=== PATIENT | female | born 1945 | race Caucasian/White ===

== ENCOUNTER 2022-07-01 13:44 | Emergency (ER) | payer MEDICARE, SELFPAY ==
[2022-07-01 14:12] VITALS: BP 113/65; PULSE 88; RESP 16; TEMP 36.7; O2SAT 96
--- NOTE | 2022-07-01 15:14 | ED.URI ---
HPI - URI/Sore Throat General Chief Complaint: Upper Respiratory Infection Stated Complaint: Runny Nose/Cough Source: patient and RN notes reviewed Mode of arrival: ambulatory Limitations: no limitations History of Present Illness HPI Narrative: 76-year-old male presents concern for a 2 day history of runny nose and cough. He denies aches, chills, sweats, fever, sore throat, nausea, vomiting, diarrhea. Reports his tested positive for COVID last week. MD elicited complaint: cough and sore throat Related Data Home Medications Medication Instructions Recorded Confirmed Xanax 07/01/22 empagliflozin 07/01/22 gabapentin 07/01/22 metformin 07/01/22 pioglitazone 07/01/22 pravastatin 07/01/22 sildenafil 100 mg tablet mg 07/01/22 trazodone 50 mg tablet mg 07/01/22 Allergies Allergy/AdvReac Type Severity Reaction Status Date / Time No Known Allergies Allergy Verified 07/01/22 14:09 Review of Systems Review of Systems: CONSTITUTIONAL: Denies malaise, chills, sweats, or fever. EYES: Denies visual changes, redness, or discharge. ENT: Reports rhinorrhea. Denies congestion, sinus pain, otalgia and sore throat. CARDIOVASCULAR: Denies chest pain, palpitations, or edema. RESPIRATORY: Reports cough. Denies dyspnea. GASTROINTESTINAL: Denies abdominal pain, nausea, vomiting, diarrhea SKIN: Denies rash or itching. MUSCULOSKELETAL: Denies myalgia. NEUROLOGIC: Denies headache. All systems reviewed & are unremarkable except as noted in HPI and below PMFSH Comments At time of signature, agree with nursing past medical, surgical, social and family history. There is no relevant family history pertinent to the presenting complaint Exam Narrative: GENERAL: Well-appearing, well-nourished, and in no acute distress. HEAD: Normocephalic EYES: PERRLA, conjunctivae clear ENT: Nares clear, clear discharge. Mucous membranes moist. TM pearly zamorano with dull light reflex bilaterally; no tragal tenderness. Oropharynx not erythematous without lesions. Tonsils not enlarged and without exudate, no drooling, no hoarseness, no trismus, uvula midline. NECK: Supple. No lymphadenopathy CHEST: Clear to auscultation, breath sounds equal. No wheezing, rhonchi, rales, or stridor. No respiratory distress, speaks in full sentences. HEART: Regular rate and rhythm. No murmur heard. SKIN: Warm, dry, no rash. NEURO: Alert and oriented x3. PSYCH: Normal mood and affect Course Course Emergency Course: Patient is aware of diagnosis, understands and agrees to treatment plan. Anticipatory guidance given. Patient agrees to follow-up as directed and is aware of reasons to seek care at the emergency department. Portions of this record may have been created with voice recognition software Level of Care: Express Care Visit Vital Signs Vital signs: Vital Signs Temperature 98.1 F 07/01/22 14:12 Pulse Rate 88 07/01/22 14:12 Respiratory Rate 16 07/01/22 14:12 Blood Pressure 113/65 07/01/22 14:12 Pulse Oximetry 96 07/01/22 14:12 Oxygen Delivery Room Air 07/01/22 14:12 Temperature 98.1 F 07/01/22 14:12 Pulse Rate 88 07/01/22 14:12 Respiratory Rate 16 07/01/22 14:12 Blood Pressure 113/65 07/01/22 14:12 Pulse Oximetry 96 07/01/22 14:12 Oxygen Delivery Room Air 07/01/22 14:12 Reviewed. MDM - URI/Sore Throat MDM Narrative Medical decision making narrative: Differential diagnosis considered: Alexander virus, strep pharyngitis, allergic rhinitis, upper respiratory tract infection, sinusitis, rhinosinusitis, nasopharyngitis. viral pharyngitis, otitis media, otitis externa, pneumonia, bronchitis, viral cough syndrome, viral syndrome, and influenza. Exam findings show no acute concerns or changes; patient is non-toxic appearing and is in no distress. Patient is appropriate for outpatient treatment and follow-up. Lab Data Attestation: I reviewed the patient's lab results. Critical Care Time Critical Care Time Crit
== END 2022-07-01 15:34 | disposition home or self-care (01) ==
PROVIDERS: Emergency Provider Nurse Practitioner; PCP Internal Medicine
DX: U07.1 COVID-19 (principal)
CPT/HCPCS: 87426; 99213; C9803; G0463

== ENCOUNTER 2023-04-21 12:07 | Emergency (ER) | payer MEDICARE, SELFPAY ==
--- NOTE | ~2023-04-21 | XR_ITS ---
EXAMINATION: XR chest 2V DATE: 04/21/2023 12:46 INDICATION: Cough and chest congestion. TECHNIQUE: Frontal and lateral views of the chest were obtained on 3 radiographs. COMPARISON: None. FINDINGS: There is no pneumonia, pleural effusion, or pneumothorax. The heart size is normal. IMPRESSION: 1. No acute cardiopulmonary disease. Reviewed, dictated and finalized at location A.
[2023-04-21 12:14] VITALS: BP 117/61; PULSE 105; RESP 16; TEMP 36.7; O2SAT 94
[2023-04-21 12:20] VITALS: BP 117/61; PULSE 105; RESP 16; TEMP 36.7; O2SAT 94
--- NOTE | 2023-04-21 12:27 | ED.GENADULT ---
HPI - General Adult General Chief complaint: Upper Respiratory Infection Stated complaint: Chest Congestion/Runny Nose Source: patient Mode of arrival: ambulatory Limitations: no limitations History of Present Illness HPI narrative: Patient presents for evaluation of cough for the last week. He also has some sinus congestion. Denies any fever, chills, nausea, vomiting, sore throat, otalgia, diarrhea, shortness of breath. He smokes 1/2 ppd. Denies being diagnosed with asthma or COPD in the past. He is taking some maki-seltzer and allergy medications for his symptoms. No recent sick contacts to his knowledge. Related Data Home Medications Medication Instructions Recorded Confirmed Xanax 07/01/22 gabapentin 07/01/22 metformin 07/01/22 pioglitazone 07/01/22 pravastatin 07/01/22 sildenafil 100 mg tablet mg 07/01/22 trazodone 50 mg tablet mg 07/01/22 Allergies Allergy/AdvReac Type Severity Reaction Status Date / Time No Known Allergies Allergy Verified 07/01/22 14:09 Review of Systems Review of Systems: CONSTITUTIONAL: Reports fatigue. Denies fever, chills, or sweats. EYES: Denies visual changes, redness, or discharge. ENT: Reports sinus congestion. Denies rhinorrhea, sore throat, or otalgia. CARDIOVASCULAR: Denies chest pain, palpitations, or edema. RESPIRATORY: Reports cough. Denies dyspnea. GASTROINTESTINAL: Denies abdominal pain, nausea, vomiting, or diarrhea. GENITOURINARY: Denies dysuria or hematuria. SKIN: Denies rash or itching. MUSCULOSKELETAL: Denies back pain, joint pain, or myalgia. NEUROLOGIC: Denies headache, numbness, dizziness, or weakness. PSYCHIATRIC: Denies anxiety or depression. PENDING SALE TO [facility] Past Medical History Medical History Diabetes Hyperlipidemia Tobacco use Surgical History Surgical History History of cholecystectomy Family History Family History Mother Family history non-contributory Social History Social History Smoking packs per day: 0.5 Smoking cigarettes per day: 10.0 Smoking status: Current every day smoker Substance use: never Living arrangements: with family Gender identity (if verbalized by the patient): Male Sexual Orientation (if Verbalized by the Patient): Straight or Heterosexual Spiritual care concerns: No Exam Narrative: GENERAL: Well-appearing, well-nourished, and in no acute distress. HEAD: Normocephalic, atraumatic. EYES: PERRLA and EOMI. ENT: Nares clear, no rhinorrhea or epistaxis. Mucous membranes moist. Oropharynx without tonsillar hypertrophy exudate or other lesions. Bilateral TMs pearly zamorano nonbulging NECK: Supple. No adenopathy or masses. No carotid bruits or JVD CHEST: Wheezing noted in bilateral lung carter posteriorly HEART: Regular rate and rhythm. No murmur heard. Normal peripheral pulses. ABDOMEN: Soft, nontender, nondistended, normal active bowel sounds. EXTREMITIES: Normal range of motion. No edema. SKIN: Warm, dry, no rash. NEURO: No focal deficits. Alert and oriented x3. PSYCH: Normal mood and affect. Course Course Emergency Course: This is a 77-year-old male who presented for evaluation of respiratory symptoms. COVID and flu were negative. Chest x-ray negative. Given Solu-Medrol and DuoNeb treatment with considerable improvement in his symptoms or after. Advised on smoking cessation. Will discharge with prednisone, albuterol, Mucinex DM. Monitor blood sugar closely while on steroids. Follow-up with primary provider. Go to the ER for worsening symptoms. Pt in agreement with plan of care. Level of Care: Express Care Visit Vital Signs Vital signs: Vital Signs Temperature 36.7 C 04/21/23 12:14 Pulse Rate 105 H 04/21/23 12:14 Respiratory Rate 16 04/21/23 12:14 Blood Pressure 117/61 04/21/23 12
[2023-04-21] MEDS: IPRATROPIUM BR 0.02% INH SOLN 0.5 MG/2.5 ML VIAL INHALATION (12:34)
[2023-04-21] MEDS: ALBUTEROL SULFATE NEB 2.5 MG/3 ML INH INHALATION (12:34)
[2023-04-21] MEDS: methylPREDNISolone SOD SUCC 125 MG VIAL IM (12:35)
== END 2023-04-21 13:30 | disposition home or self-care (01) ==
PROVIDERS: Emergency Provider Nurse Practitioner; PCP Internal Medicine
DX: B34.9 Viral infection, unspecified (principal); Z20.822 Contact with and (suspected) exposure to COVID-19; F17.210 Nicotine dependence, cigarettes, uncomplicated; E11.9 Type 2 diabetes mellitus without complications; E78.5 Hyperlipidemia, unspecified
CPT/HCPCS: 71046; 87426; 87804; 94640; 96372; 99213; C9803; G0463; J2930

== ENCOUNTER 2024-08-18 12:06 | Emergency (ER) | payer MEDICARE, SELFPAY ==
--- NOTE | ~2024-08-18 | XR_ITS ---
EXAMINATION: XR chest 2V 08/18/2024 12:37 INDICATION: Cough and shortness of PROCEDURE: 2 view chest COMPARISON: 04/21/2023 FINDINGS: The lungs are clear. The cardiomediastinal silhouette is within normal limits. There are no pleural effusions. There is no pneumothorax suspected. IMPRESSION: 1: NO ACUTE CARDIOPULMONARY DISEASE. Reviewed, dictated and finalized at location B. [facility] [employer]
--- OUTSIDE RECORDS SUMMARY | 2024-08-18 12:09 | XMS_ITS | Patient Health Summary ---
Author Organization [facility] Address [address] [place] [address] Care Team Providers Care Medical Office Secretary Name Role Phone David Veloz MD Primary Care Provider [phone] Note from [facility],non-owned Affiliates and Associated Physician Practices is amultiple site organization consisting of ambulatory clinics and hospital sitesin [place], [place], [place] and [place]. This disclosure is being madepursuant to the Care Everywhere program and may not contain all information available regarding this patient. Last updated 18.[facility] Allergies No known active allergies Immunizations * INFLUENZA VACCINE, HIGH-DOSE, QUADR. (FLUZONE HIGH-DOSE QUADRIVALENT; 65Y+), 0.7 ML (HD-IIV4)(Given 04/16/2018) Social History Tobacco Use Types Packs/Day Years Used Date Smoking Tobacco: Never Assessed Sex and Gender Information Value Date Recorded Sex Assigned at Not on file Gender Identity Not on file Sexual Orientation Not on file Procedures * DERMATOPATHOLOGY(Performed 08/28/2023) Results * DERMATOPATHOLOGY (08/28/2023 3:33 AM LOG SCALER) Case Report Dermatopathology Report Case: [id number] Authorizing Provider: Michael Byrd Jr., MD Collected: 08/28/2023 03:33 AM Ordering Location: [facility] DermPath Lab Received: 09/01/2023 12:53 PM Pathologist: Lavinia Rudolph MD Specimens: A) - Skin, left distal posterior upper arm B) - Skin, left clavicular neck 4 3:01 PM LOG SCALER DERMATOPATHOLOGY LABORATORY Final Diagnosis Specimen A. SKIN, left distal posterior upper arm: BENIGN VERRUCOUS KERATOSIS (L82.1) HEALING SKIN CHANGES (L90.5) Specimen B. SKIN, left clavicular neck: SEBORRHEIC KERATOSIS, IRRITATED AND INFLAMED (L82.0) 4 3:[address] [facility] DERMATOPATHOLOGY LABORATORY Clinical History A-B: Inflamed Seborrheic Keratosis vs Squamous Cell Carcinoma vs Verruca Vulgaris 4 3:[address] [facility] DERMATOPATHOLOGY LABORATORY Gross Description Specimen A: Received is one formalin filled container labeled with the patient's name and designated left distal posterior upper arm. The specimen consists of a shave biopsy measuring 8x6x2 mm. Jar 0. Specimen B: Received is one formalin filled container labeled with the patient's name and designated left clavicular neck. The specimen consists of a shave biopsy measuring 12x9x3 mm. Jar 0. 4 3:[address] [facility] DERMATOPATHOLOGY LABORATORY Microscopic Description Specimen A. SKIN, left distal posterior upper arm: Sections show hyperkeratosis, papillomatosis, hypergranulosis, and acanthosis. These histological findings can be seen in a verruca vulgaris or a seborrheic keratosis. There is adjacent epidermal hyperplasia beneath which there are vascular proliferation, fibroblasts, and an edematous stroma. Specimen B. SKIN, left clavicular neck: There is hyperkeratosis, parakeratosis, papillomatosis, and acanthosis of the epidermis. There is a lymphohistiocytic infiltrate within the papillary dermis that is focally lichenoid. 4 3:[address] [facility] DERMATOPATHOLOGY LABORATORY Disclaimer An external and internal positive and negative controls are appropriate for the histochemical, immunohistochemical and immunofluorescence stain(s) in this case (if any), except where stated explicitly. The performance characteristics of the stain(s) cited in this report were developed and its performance characteristic determined by the Dermatopathology Laboratory at [facility], directed by Dr. Radha Falcon. These tests need not be, and therefore are not, approved by the [place] Food and Drug Administration. The tests are used for clinical purposes. Billing Codes Specimen Charges Stain Charges 85306 83813 1 1 4 3:[address] [facility] DERMATOPATHOLOGY LABORATORY Embedded Images 4 3:[address] [facility] DERMATOPATHOLOGY LABORATORY Pathology/Cytology TISSUE SPECIMEN FROM SKIN / Unknown 08/28/2023 3:33 AM LOG SCALER 09/01/2023 12:53 PM LOG SCALER Miscellaneous samples (specimen) TISSUE SPECIMEN FROM SKIN / Unknown 08/28/2023 3:33 AM LOG SCALER 09/01/2023 12:53 PM LOG SCALER Michael Byrd Jr., MD LAB - PATHOLOGY /CYTOLOGY ORDERABLES DERMATOPATHOLOGY LABORATORY [facility] - Department of Dermatology [facility] [address] [place] [address], [address] [phone] Care Teams Medical Office Secretary Relationship Specialty Start Date End Date David Veloz MD PCP - General Internal Medicine 04/16/18
--- OUTSIDE RECORDS SUMMARY | 2024-08-18 12:09 | XMS_ITS | Encounter Summary ---
Author Organization [facility] Address [address] [place] [address] Care Team Providers Care Inspector Elevators Name Role Phone David Veloz MD Primary Care Provider [phone] Encounter Details Date Type Department Care Team (Late st Contact Info) Description 09/01/2023 Lab Requisition [facility] - DermPath Lab [address] [place] [id number] Michael Byrd Jr., MD [address] [place] [address] Social History Tobacco Use Types Packs/Day Years Used Date Smoking Tobacco: Never Assessed Sex and Gender Information Value Date Recorded Sex Assigned at Not on file Gender Identity Not on file Sexual Orientation Not on file documented as of this encounter Plan of Treatment Not on file documented as of this encounter Procedures Procedure Name Priority Date/Time Associated Diagnosis Comments DERMATOPATHOLOGY Routine 08/28/2023 3:33 AM HEALTH INFORMATION ADMINISTRATOR documented in this encounter Results * DERMATOPATHOLOGY (08/28/2023 3:33 AM HEALTH INFORMATION ADMINISTRATOR) Case Report Dermatopathology Report Case: [id number] Authorizing Provider: Michael Byrd Jr., MD Collected: 08/28/2023 03:33 AM Ordering Location: [facility] DermPath Lab Received: 09/01/2023 12:53 PM Pathologist: Lavinia Rudolph MD Specimens: A) - Skin, left distal posterior upper arm B) - Skin, left clavicular neck 3:01 PM HEALTH INFORMATION ADMINISTRATOR DERMATOPATHOLOGY LABORATORY Final Diagnosis Specimen A. SKIN, left distal posterior upper arm: BENIGN VERRUCOUS KERATOSIS (L82.1) HEALING SKIN CHANGES (L90.5) Specimen B. SKIN, left clavicular neck: SEBORRHEIC KERATOSIS, IRRITATED AND INFLAMED (L82.0) 4 3:01 PM [facility] DERMATOPATHOLOGY LABORATORY Clinical History A-B: Inflamed Seborrheic Keratosis vs Squamous Cell Carcinoma vs Verruca Vulgaris 4 3:01 PM [facility] DERMATOPATHOLOGY LABORATORY Gross Description Specimen A: Received [...] 12x9x3 mm. Jar 0. 4 3:01 PM [facility] DERMATOPATHOLOGY LABORATORY Microscopic Description Specimen A. SKIN, [...] that is focally lichenoid. 4 3:01 PM [facility] DERMATOPATHOLOGY LABORATORY Disclaimer An external and internal positive and negative controls are appropriate for the histochemical, immunohistochemical and immunofluorescence stain(s) in this case (if any), except where stated explicitly. The performance characteristics of the stain(s) cited in this report were developed and its performance characteristic determined by the Dermatopathology Laboratory at [facility], directed by Dr. Radha Falcon. These tests need not be, and therefore are not, approved by the [place] Food and Drug Administration. The tests are used for clinical purposes. Billing Codes Specimen Charges Stain Charges 26531 96110 1 1 4 3:01 PM [facility] DERMATOPATHOLOGY LABORATORY Embedded Images 4 3:01 PM [facility] DERMATOPATHOLOGY LABORATORY Pathology/Cytology TISSUE SPECIMEN FROM SKIN / Unknown 08/28/2023 3:33 AM HEALTH INFORMATION ADMINISTRATOR 09/01/2023 12:53 PM HEALTH INFORMATION ADMINISTRATOR Miscellaneous samples (specimen) TISSUE SPECIMEN FROM SKIN / Unknown 08/28/2023 3:33 AM HEALTH INFORMATION ADMINISTRATOR 09/01/2023 12:53 PM HEALTH INFORMATION ADMINISTRATOR Michael Byrd Jr., MD LAB - PATHOLOGY /CYTOLOGY ORDERABLES DERMATOPATHOLOGY LABORATORY [facility] - Department of Dermatology [facility] Specialized Medicine [address] [place] [address], [address] [phone] documented in this encounter Visit Diagnoses Not on filedocumented in this encounter Care Teams Inspector Elevators Relationship Specialty Start Date End Date David Veloz MD PCP - General Internal Medicine 04/16/18 documented as of this encounter
--- OUTSIDE RECORDS SUMMARY | 2024-08-18 12:09 | XMS_ITS | Referral Summary ---
Author Organization [facility] Address [address] [place] [address] Care Team Providers Care Order Dispatcher Name Role Phone David Veloz MD Primary Care Provider [phone] Source Comments [facility],non-owned Affiliates and Associated Physician Practices is amultiple site organization consisting of ambulatory clinics and hospital sitesin [place], [place], [place] and [place]. This disclosure is being madepursuant to the Care Everywhere program and may not contain all information available regarding this patient. Last updated 18.[facility] [employer] Allergies No known active allergies Immunizations Name Administration Dates Next Due INFLUENZA VACCINE, HIGH-DOSE , QUADR. (FLUZONE HIGH-DOSE QUADRIVALENT; 65Y+), 0.7 ML (HD-IIV4) 04/16/2018 Social History Tobacco Use Types Packs/Day Years Used Date Smoking Tobacco: Never Assessed Sex and Gender Information Value Date Recorded Sex Assigned at Not on file Gender Identity Not on file Sexual Orientation Not on file Plan of Treatment Not on file Care Teams Order Dispatcher Relationship Specialty Start Date End Date David Veloz MD PCP - General Internal Medicine 04/16/18
--- OUTSIDE RECORDS SUMMARY | 2024-08-18 12:09 | XMS_ITS | Encounter Summary ---
Author Organization [facility] Address [address] [place] [address] Phone Care Team Providers Care Golf Superintendent Name Role Phone Dante Ratliff MD Primary Care Provider [phone] Fidel Figueredo MD Unavailable [phone] Hair Ocasio MD Primary Care Provider Evaristo Gomez MD Unavailable [phone] Encounter Details Date Type Department Care Team (Late st Contact Info) Description 10/15/2017 Orders Only [facility] ProviderRandall MD [address] [place] [address] Social History Tobacco Use Types Packs/Day Years Used Date Smoking Tobacco: Some Days Cigarettes 1 56 Smokeless Tobacco: Current Alcohol Use Standard Drinks/Week Comments No 0 (1 standard drink = 0.6 oz pur e alcohol) Sex and Gender Information Value Date Recorded Sex Assigned at Not on file Legal Sex Male 1:20 PM TIMBER ESTIMATOR Gender Identity Not on file Sexual Orientation Not on file documented as of this encounter Plan of Treatment Not on file documented as of this encounter Procedures Procedure Name Priority Date/Time Associated Diagnosis Comments DISCHARGE LABORATORY CUMULATIVE REPORT 10/15/2017 12:00 AM CDT documented in this encounter Results * DISCHARGE LABORATORY CUMULATIVE REPORT (10/15/2017 12:00 AM CDT) Narrative 10/15/2017 12:00 AM CDT Ordered by an unspecified provider. us Historical Provider LAB BLOOD ORDERABLES Taryn l Result documented in this encounter Visit Diagnoses Not on filedocumented in this encounter Care Teams Golf Superintendent Relationship Specialty Start Date End Date Dante Ratliff MD PCP - General Internal Medicine 06/08/17 10/15/23 Hair Ocasio MD [address] SHRUTI England [facility] [address] [place] [address] PCP - General Family Medicine 10/16/23 Fidel Figueredo MD Referring Physician General Surgery 11/11/18 Evaristo Gomez MD [address] SHRUTI Lozada [facility] [address] [place] [address] Surgeon Orthopedic Surgery 12/09/23 documented as of this encounter
--- OUTSIDE RECORDS SUMMARY | 2024-08-18 12:09 | XMS_ITS | Encounter Summary ---
Author Organization [facility] Address [address] [place] [address] Care Team Providers Care Database Administration Project Manager Name Role Phone David Veloz MD Primary Care Provider + Dante Ratliff MD Primary Care Provider [phone] Fidel Figueredo MD Unavailable [phone] Hair Ocasio MD Primary Care Provider Evaristo Gomez MD Unavailable [phone] Encounter Details Date Type Department Care Team (Late st Contact Info) Description 07/17/2016 Orders Only [facility] Internal Medicine Provider, MD Randall [address] [place] [address] Social History Tobacco Use Types Packs/Day Years Used Date Smoking Tobacco: Some Days Alcohol Use Standard Drinks/Week Comments No 0 (1 standard drink = 0.6 oz pur e alcohol) Sex and Gender Information Value Date Recorded Sex Assigned at Not on file Legal Sex Male 1:20 PM GOVERNMENT PROPERTY INSPECTOR Gender Identity Not on file Sexual Orientation Not on file documented as of this encounter Plan of Treatment Not on file documented as of this encounter Procedures Procedure Name Priority Date/Time Associated Diagnosis Comments CARDIOLOGY REPORT 07/17/2016 documented in this encounter Results * CARDIOLOGY REPORT (07/17/2016) Anatomical Region Laterality Modality Other Narrative 07/17/2016 Ordered by an unspecified provider. Historical Provider CV CARDIAC SERVICES PROCE DURES Final Result documented in this encounter Visit Diagnoses Not on filedocumented in this encounter Care Teams Database Administration Project Manager Relationship Specialty Start Date End Date David Veloz MD [address] [place] [address] PCP - General 10/18/07 06/07/17 Dante Ratliff MD [address] [place] [address] PCP - General Internal Medicine 06/08/17 10/15/23 Hair Ocasio MD [address] [place] [address] DR SHRUTI [place] [facility] [address] [place] [address] PCP - General Family Medicine 10/16/23 Fidel Figueredo MD [address] [place] [address] [place] [address] Referring Physician General Surgery 11/11/18 Evaristo Gomez MD [address] [place] [address] DR BAHENA B [facility] [address] [place] [address] Surgeon Orthopedic Surgery 12/09/23 documented as of this encounter
--- OUTSIDE RECORDS SUMMARY | 2024-08-18 12:09 | XMS_ITS | Clinical Summary ---
Author Organization [facility] Address [address] [place] [address] Care Team Providers Care Cobol Developer Name Role Phone David Veloz MD Primary Care Provider [phone] Source Comments [facility],non-owned Affiliates and Associated Physician Practices is amultiple site organization consisting of ambulatory clinics and hospital sitesin [place], [place], [place] and [place]. This disclosure is being madepursuant to the Care Everywhere program and may not contain all information available regarding this patient. Last updated 18.[facility] Allergies No known active allergies Immunizations Name Administration Dates Next Due INFLUENZA VACCINE, HIGH-DOSE , QUADR. (FLUZONE HIGH-DOSE QUADRIVALENT; 65Y+), 0.7 ML ([id number]) 04/16/2018 Social History Tobacco Use Types Packs/Day Years Used Date Smoking Tobacco: Never Assessed Sex and Gender Information Value Date Recorded Sex Assigned at Not on file Gender Identity Not on file Sexual Orientation Not on file Plan of Treatment Health Maintenance Due Date Last Done Comments MEDICARE AWV 12 MONTHS 1945 HEPATITIS C SCREENING 12/09/1963 DTAP/TDAP/TD VACCINES (1 - Tdap) 1964 PNEUMOCOCCAL VACCINE 50+ (1 of 1 - PCV) 12/14/1995 ZOSTER VACCINE (1 of 2) 12/14/1995 Respiratory Syncytial Virus (RSV) Vaccine Pt: or over 60 yrs (1 - 1-dose 75+ series) 2020 COVID-19 VACCINE (1 - 2023-25 season) 2024 INFLUENZA VACCINE (#1) 2024 8, 04/14/2017, 05/05/2016, Additional history exists DEPRESSION SCREENING 07/13/2024 HEPATITIS B VACCINE Aged Out No longe r eligible based on patient's age to complete this topic HIB VACCINE Aged Out No longer eligi ble based on patient's age to complete this topic HPV VACCINE Aged Out No longer eligi ble based on patient's age to complete this topic MENINGOCOCCAL (Group B) VACCINE Aged Out No longer eligible based on patient's age to complete this topic MENINGOCOCCAL VACCINE Aged Out No ruel cherie eligible based on patient's age to complete this topic Care Teams Cobol Developer Relationship Specialty Start Date End Date David Veloz MD PCP - General Internal Medicine 04/16/18
--- OUTSIDE RECORDS SUMMARY | 2024-08-18 12:10 | XMS_ITS | Clinical Summary ---
Author Organization [facility] Office Building A Address [address] [place] [address] Care Team Providers Care Metal Mockup Maker Name Role Phone Fidel Figueredo MD Unavailable [phone] Hair Ocasio MD Primary Care Provider Evaristo Gomez MD Unavailable [phone] Allergies Active Allergy Reactions Criticality Noted Date Comments Ciprofloxacin Rash Medium Reaction: Rash, , Reaction: Rash, Medications pravastatin (PRAVACHOL) 40 mg tablet take 1 tablet by ORAL route every day 0 0 7 Active fluticasone (FLONASE) 50 mcg/actuation nasal spray Administer 2 sprays into each nostril daily. 16 g 8 Active cholecalciferol (VITAMIN D-3) 2000 unit capsule 1 capsule (2,000 Units total) Active gabapentin (NEURONTIN) 300 mg capsule Take 3 capsules (900 mg total) by mouth 3 (three) times a day Active alogliptin 25 mg tablet Take 1 tablet by mouth daily Active albuterol HFA (PROVENTIL HFA,VENTOLIN HFA,PROAIR HFA) 90 mcg/actuation inhaler Inhale 2 puffs every 6 (six) hours as needed for wheezing Active MULTIVITAMIN ORAL Take by mouth Active DULoxetine DR (CYMBALTA) 60 mg capsule Take 1 capsule (60 mg total) by mouth daily Active empagliflozin-m etformin 12.5-1,000 mg tablet, IR & ER, biphasic 24hr Take two tablets every morning 3 Active cetirizine (ZyrTEC) 10 mg tablet 1 tablet (10 mg total) 3 Active pioglitazone (ACTOS) 30 mg tabletIndicatio ns:type 2 diabetes mellitus Take 1 tablet (30 mg total) by mouth daily Active sildenafiL (VIAGRA) 100 mg tablet 1 tablet (100 mg total) Active traZODone (DESYREL) 50 mg tablet 1 tablet (50 mg total) Active ciclopirox (LOPROX) 0.77 % creamIndication s:Tinea pedis of left foot Apply topically 2 (two) times a day Gently massage into affected areas and surrounding skin 15 g 4 12/09/19 25 Active doxycycline (VIBRAMYCIN) 100 mg capsuleIndicati ons:Skin cyst Take 1 tablet/capsule (100 mg total) by mouth 2 (two) times a day for 10 days 20 tablet/capsu le 5 08/12/19 25 Active Problems Problem Noted Date Diagnosed Date Skin cyst 08/02/2024 Assessment & Plan (08/02/2024 2:24 PM AUTOMOTIVE SALESPERSON): - new diagnosis - not consistent with lymph node - likely sebaceous cyst, non-tender, mild irritation noted - start Doxycycline 100 mg bID BID - discussed if not improved it may need to be excised if it causes him discomfort S/P total knee arthroplasty, left 10/22/2023 Assessment & Plan (12/09/2023 3:06 PM CDT): -chronic, worsening -patient reports longstanding history of arthritis in left knee -patient currently follows with Dr. Gomez of ortho -plans for left knee replacement scheduled for 02/02/2024 Assessment & Plan (10/30/2023 12:28 PM CDT): -chronic, worsening -patient reports longstanding history of arthritis in left knee -patient currently follows with Dr. Gomez of ortho -plans for left knee replacement on 11/17/2023 -preop evaluation completed -continue current treatment plan History of colonic polyps 09/04/2023 Assessment & Plan (05/31/2024 4:05 PM AUTOMOTIVE SALESPERSON): - has personal history of colon polyps - most recent colonoscopy as shown below Colonoscopy 04/2024 Impression: - Three 10 to 12 mm polyps in the descending colon and in the ascending colon, removed with a cold snare. Resected and retrieved. - Diverticulosis in the sigmoid colon and at the hepatic flexure. - Internal hemorrhoids. Recommendation: - Await pathology results. - Repeat colonoscopy is not recommended for screening purposes. - Patient medication history reviewed. Patient is appropriately not taking any medications. - Continue present medications. Assessment & Plan (12/11/2023 11:22 PM CDT): - has [facility] for [facility] 2024 [facility] - has personal history of colon polyps PTSD (post-traumatic stress disorder) 11/25/2021 Overview (11/25/2021): [facility]aged by [facility] Assessment & Plan (05/31/2024 4:03 PM AUTOMOTIVE SALESPERSON): - chronic condition, stable status - follows and managed by [facility] - of PTSD, anxiety, depression - currently on Trazodone 50 mg nightly for sleep, Duloxetine DR 60 mg daily - continue current management Assessment & Plan (12/09/2023 3:05 PM CDT): - chronic condition, stable status - follows and managed by [facility] at the [facility] - of PTSD, anxiety, depression - currently on Trazodone 50 mg nightly for sleep, Duloxetine DR 60 mg daily - continue current management Assessment & Plan (05/28/2022 10:09 AM AUTOMOTIVE SALESPERSON): Stable on current medication regimen should follow-up with psychiatrist as they direct. Assessment & Plan (11/25/2021 8:50 AM CDT): Stable on duloxetine and should follow-up with his [facility] psychiatrist. Callus of foot 11/13/2020 Assessment & Plan (11/13/2020 9:59 AM CDT): Follow-up with his window glazier as they direct. Erectile dysfunction 11/13/2020 Assessment & Plan (11/25/2022 12:02 PM CDT): Recommended Urology eval but declined. Failed viagra and testosterone replacement. Abnormal ankle brachial index (BRAULIO) 11/08/2018 Assessment & Plan (03/12/2019 9:04 AM CDT): Patient has increased risk for peripheral arterial disease due to his age, hypertension, diabetes, smoking history. He had an abnormal screening test and therefore a formal evaluation with ankle brachial indexes was ordered at [facility] thus it was medically necessary. Assessment & Plan (11/08/2018 8:30 PM CDT): Will confirm abnormal test with BRAULIO at [facility]. Psychophysiological insomnia 03/03/2018 Assessment & Plan (05/31/2024 4:03 PM AUTOMOTIVE SALESPERSON): - chronic condition, stable status - has known anxiety and depression - managed by his psychiatrist, currently on trazodone 50 mg on a nightly basis through the [facility] - continue current management Assessment & Plan (12/11/2023 11:18 PM CDT): - chronic condition, stable status - has known anxiety and depression - managed by his psychiatrist, currently on trazodone 50 mg on a nightly basis through the [facility] - continue current management Assessment & Plan (11/25/2022 4:30 PM CDT): Advised him to avoid Xanax for sleep. Recommended trying trazodone or Belsomra or Ambien. Follow-up with his psychiatrist for management. Assessment & Plan (11/25/2021 8:50 AM CDT): Follow-up with his [facility]. Assessment & Plan (07/09/2021 8:21 PM AUTOMOTIVE SALESPERSON): Trial of trazodone 50 mg at bedtime increase as needed. Call back if side effects develop. Diabetic peripheral neuropathy (CMS/HCC) 018 Assessment & Plan (12/11/2023 11:21 PM CDT): - chronic condition, controlled - currently on gabapentin 100 mg 3 times daily [facility] - aware of importance of good glycemic control for type 2 diabetes, also has hx of chemotherapy which may have contributed to neuropathy - continue current management No results found for: VITB12 No results found for: FOLATE Assessment & Plan (05/30/2022 2:26 PM AUTOMOTIVE SALESPERSON): Patient plans on Tonny Chi for balance training at the [facility]. Physical therapy offered for balance training as well but declined. Call back if changes his mind Assessment & Plan (05/28/2022 10:11 AM AUTOMOTIVE SALESPERSON): Stable on gabapentin and duloxetine. Assessment & Plan (11/25/2021 8:50 AM CDT): Well controlled on gabapentin and duloxetine. Assessment & Plan (07/09/2021 8:20 PM AUTOMOTIVE SALESPERSON): Stable on gabapentin. Assessment & Plan (11/13/2020 9:58 AM CDT): Better controlled on increased dose of gabapentin. Assessment & Plan (06/13/2020 2:44 PM AUTOMOTIVE SALESPERSON): Increase gabapentin and call back if no improvement. Side effects discussed and call back if any develop. Assessment & Plan (11/11/2019 2:33 PM CDT): Well controlled on gabapentin. Assessment & Plan (05/13/2019 9:44 AM CDT): Well controlled gabapentin. Assessment & Plan (11/08/2018 8:29 PM CDT): Stable on gabapentin. Assessment & Plan (03/08/2018 12:01 AM CDT): Well controlled on gabapentin. Assessment & Plan (10/29/2017 9:31 AM CDT): Continue gabapentin. Cannot walk further than 200 ft without having to stop and rest and thus disability parking form completed. Assessment & Plan (10/28/2017 2:01 PM CDT): Continue gabapentin. 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 Discharged from heme/onc 2015 with recs for yearly cbc. Assessment & Plan (06/15/2023 12:49 AM AUTOMOTIVE SALESPERSON): Asymptomatic and CBC remains normal. Refer back to Heme-Onc if needed. Assessment & Plan (05/28/2022 10:10 AM AUTOMOTIVE SALESPERSON): Asymptomatic and CBC remains normal. CBC yearly and refer back to Heme-Onc if needed. Assessment & Plan (05/13/2019 9:44 AM CDT): Patient remains asymptomatic will check CBCs yearly. Refer back to oncology for any signs of recurrence. Assessment & Plan (11/10/2018 3:49 AM CDT): In remission, stable. Continue monitoring Assessment & Plan (11/08/2018 8:32 PM CDT): Patient concerned that his increased bloating and occasional abdominal discomfort is related to recurrence of his lymphoma. Repeat CT scan abdomen pelvis and call back for results. Assessment & Plan (03/08/2018 12:01 AM CDT): Continue yearly CBC and refer back to Oncology if develops symptoms of current disease. Assessment & Plan (10/29/2017 9:31 AM CDT): Follow-up with his oncologist as they direct. Assessment & Plan (10/28/2017 2:01 PM CDT): Follow-up with his oncologist as he directs. Atopic rhinitis 08/28/2014 Overview (10/16/2016): Chronic allergic rhinitis Assessment & Plan (11/13/2020 9:58 AM CDT): Better controlled on fluticasone and Zyrtec Assessment & Plan (06/13/2020 2:43 PM AUTOMOTIVE SALESPERSON): Add Fluticasone to his Zyrtec. Assessment & Plan (03/08/2018 12:00 AM CDT): Well controlled on Zyrtec fluticasone and azelastine. Assessment & Plan (10/29/2017 9:29 AM CDT): Add azelastine to his Zyrtec and Flonase and needs take all his medications each and every day. Assessment & Plan (10/28/2017 2:02 PM CDT): Flonase and Flonase and Zyrtec on a regular basis and will try a course of Ceftin for possible sinusitis. Type 2 diabetes mellitus with hyperlipidemia Assessment & Plan (05/31/2024 4:24 PM AUTOMOTIVE SALESPERSON): - chronic, worse/not at goal - [facility] - currently on Alogliptin 25 mg daily, Empagliflozin-metformin 12.5-1000 mg daily - has neuropathy and is on Gabapentin 900 mg TID which has helped him - currently on Pravastatin 40 mg daily - most recent labs as shown below\ - has had Left TKA and has had more inactivity, plans to be more active and believes his A1c will improved - continue current management, recheck lab for next visit, order placed Lab Results Component Value Date HGBA1C 7.9 (H) 05/26/2024 HGBA1C 7.0 (H) 01/13/2024 HGBA1C 7.7 (H) 10/30/2023 Lab Results Component Value Date MICROALBUR 21.6 10/28/2019 LDLCALC 64 05/26/2024 CREATININE 0.80 05/26/2024 Assessment & Plan (12/09/2023 3:08 PM CDT): - chronic, stable - managed [facility] - currently on Alogliptin 25 mg daily, Empagliflozin-metformin 12.5-1000 mg daily - has neuropathy and is on Gabapentin 900 mg TID which has helped him - currently on Pravastatin 40 mg daily - most recent labs as shown below - continue current management Lab Results Component Value Date HGBA1C 7.7 (H) 10/30/2023 HGBA1C 7.4 (H) 06/02/2023 HGBA1C 7.0 (H) 11/21/2022 Lab Results Component Value Date MICROALBUR 21.6 10/28/2019 LDLCALC 60 06/02/2023 CREATININE 0.81 10/30/2023 Assessment & Plan (06/15/2023 12:54 AM AUTOMOTIVE SALESPERSON): We discussed newer medications on the market including G LP ones and the benefit they present to diabetic patients. Continue his metformin, Jardiance but would recommend replacing pioglitazone and alogliptin with a GLP1. The Rationale and the benefits for this discussed. He should discuss with [facility] for [facility]. Assessment & Plan (11/25/2022 4:30 PM CDT): A1c much better controlled. I have asked him to bring in all medications for next visit. Continue efforts at diet exercise weight loss. Assessment & Plan (05/28/2022 10:09 AM AUTOMOTIVE SALESPERSON): A1c above goal. Importance of diet exercise discussed at length. He should discuss with his [facility] alternatives/additions to his current medication regimen. Assessment & Plan (11/25/2021 8:50 AM CDT): A1c just above goal. Focus on diet exercise. Continue current medication regimen. Microalbumin creatinine ratio rising and I would recommend restarting [facility]. Assessment & Plan (07/09/2021 8:19 PM AUTOMOTIVE SALESPERSON): A1c above goal. He should discuss changing his Alogliptin to a G LP 1 with his [facility]. Make sure he still taking his pravastatin for cholesterol. Assessment & Plan (12/17/2020 8:45 AM CDT): Fair control w/ A1c 7.5 Assessment & Plan (11/13/2020 9:58 AM CDT): I agree with adding Jardiance to his metformin and glimepiride as his A1c is above goal with history of diabetic peripheral neuropathy and microalbuminuria. Check A1c before next visit. Assessment & Plan (06/13/2020 2:43 PM AUTOMOTIVE SALESPERSON): A1c, LDL, and blood pressure currently well controlled on current regimen. Check a yearly diabetic eye exam and blood sugars daily. Monofilament testing is abnormal. Assessment & Plan (11/11/2019 2:32 PM CDT): A1c slightly above goal. Improvement diet exercise discussed. Could increases alogliptin to 25 mg daily. Continues metformin and glimepiride at current dosing for now. Assessment & Plan (05/13/2019 9:43 AM CDT): A1c, LDL, and blood pressure currently well controlled on current regimen. Check a yearly diabetic eye exam and blood sugars daily. Monofilament testing is abnormal. Assessment & Plan (03/12/2019 9:03 AM CDT): Blood sugars back to normal and should call back for any episodes of hypoglycemia. Assessment & Plan (11/08/2018 8:27 PM CDT): A1c, LDL, and blood pressure currently well controlled on current regimen. Check a yearly diabetic eye exam and blood sugars daily. Take a daily aspirin. Monofilament testing is intact. Assessment & Plan (03/08/2018 12:01 AM CDT): A1c, LDL, and blood pressure currently well controlled on current regimen. Check a yearly diabetic eye exam and blood sugars daily. Take a daily aspirin. Monofilament testing is abnormal. Assessment & Plan (10/29/2017 9:30 AM CDT): A1c, LDL, and blood pressure currently well controlled on current regimen. Check a yearly diabetic eye exam and blood sugars daily. Take a daily aspirin. Monofilament testing is abnormal Assessment & Plan (10/28/2017 2:04 PM CDT): A1c, LDL, and blood pressure currently well controlled on current regimen. Check a yearly diabetic eye exam and blood sugars daily. Take a daily aspirin. Monofilament testing is intact. Will see him back in 4 months with labs and wellness visit sooner if needed Obstructive sleep apnea syndrome 11/26/2013 Overview (05/31/2024): Not on CPAP Assessment & Plan (05/28/2022 10:10 AM AUTOMOTIVE SALESPERSON): Home sleep study to verify presence of sleep apnea remains and then order new APAP machine. Assessment & Plan (07/09/2021 8:19 PM AUTOMOTIVE SALESPERSON): Patient is compliant with the CPAP machine and gets symptomatic relief. Assessment & Plan (11/13/2020 9:58 AM CDT): Patient is compliant with the CPAP machine and gets symptomatic relief. Assessment & Plan (06/13/2020 2:43 PM AUTOMOTIVE SALESPERSON): Patient is compliant with the CPAP machine and gets symptomatic relief. Assessment & Plan (05/13/2019 9:43 AM CDT): Patient is compliant with the CPAP machine and gets symptomatic relief. Assessment & Plan (10/29/2017 9:30 AM CDT): Patient is compliant with the CPAP machine and gets symptomatic relief. Assessment & Plan (10/28/2017 2:01 PM CDT): CPAP therapy recommended but declined. He is aware the risks this poses to his health. Tobacco dependence syndrome 11/26/2013 Assessment & Plan (08/02/2024 2:15 PM AUTOMOTIVE SALESPERSON): Social History Tobacco Use Smoking Status Every Day Average packs/day: 1 pack/day for 56.0 years (56.0 ttl pk-yrs) Types: Pipe, Cigarettes Start date: 09/10/1965 Smokeless Tobacco Never - chronic condition, not at goal - assessed patient readiness for tobacco smoking cessation - discussed the importance of tobacco smoking cessation with goal of being tobacco free Assessment & Plan (05/31/2024 4:17 PM AUTOMOTIVE SALESPERSON): Social History Tobacco Use Smoking Status Former Average packs/day: 1 pack/day for 56.0 years (56.0 ttl pk-yrs) Types: Pipe, Cigarettes Start date: 09/10/1965 Smokeless Tobacco Never - due for lung cancer screening CT, order placed Assessment & Plan (12/09/2023 3:14 PM CDT): Social History Tobacco Use Smoking Status Former Current packs/day: 0.00 Average packs/day: 1 pack/day for 56.0 years (56.0 ttl pk-yrs) Types: Cigarettes, Pipe Start date: 09/10/1965 Quit date: 09/10/2021 Years since quittin.2 Smokeless Tobacco Current - chronic condition, not at goal - assessed patient readiness for tobacco smoking cessation - discussed the importance of tobacco smoking cessation with goal of being tobacco free Assessment & Plan (11/25/2021 8:50 AM CDT): Patient is congratulated on smoking cessation efforts Assessment & Plan (12/17/2020 8:46 AM CDT): He was advised to quit smoking; the risks of continued tobacco use discussed. Assessment & Plan (11/13/2020 9:58 AM CDT): Nicotine replacement therapy and smoking cessation counseling discussed at length. The long-term risks posed to his health with continued usage were discussed at length. Assessment & Plan (06/13/2020 2:44 PM AUTOMOTIVE SALESPERSON): Nicotine replacement therapy and smoking cessation counseling discussed at length. The long-term risks posed to his health with continued usage were discussed at length. Assessment & Plan (11/11/2019 2:32 PM CDT): Nicotine replacement therapy and smoking cessation counseling discussed at length. The long-term risks posed to his health with continued usage were discussed at length. Assessment & Plan (05/13/2019 9:43 AM CDT): Nicotine replacement therapy and smoking cessation counseling discussed at length. The long-term risks posed to his health with continued usage were discussed at length. He declines lung cancer screening and is aware the risks this poses to his health. Assessment & Plan (11/10/2018 3:52 AM CDT): Discussed smoking cessation. Patient not interested. Will start on Nicoderm patch Assessment & Plan (03/08/2018 12:00 AM CDT): Nicotine replacement therapy and smoking cessation counseling discussed at length. The long-term risks posed to his health with continued usage were discussed at length. Assessment & Plan (10/29/2017 9:30 AM CDT): Nicotine replacement therapy and smoking cessation counseling discussed for 5 min. The long-term risks posed to his health with continued usage were discussed at length. Assessment & Plan (10/28/2017 2:04 PM CDT): Nicotine replacement therapy and smoking cessation counseling discussed at length. The long-term risks posed to his health with continued usage were discussed at length. [facility]. Dyslipidemia associated with type 2 diabetes luciana litus 11/26/2013 Assessment & Plan (05/31/2024 4:05 PM AUTOMOTIVE SALESPERSON): - chronic condition - status: is adequately controlled. - current management/medications: Pravastatin 40 mg daily - other comorbid conditions:DM2 - patient is compliant with medications. - most recent LDL as shown below - maintain a healthy weight, diet - will monitor closely - continue current management Lab Results Component Value Date LDLCALC 64 05/26/2024 Lab Results Component Value Date ALT 9 05/26/2024 AST 14 05/26/2024 ALKPHOS 123 05/26/2024 BILITOT 0.4 05/26/2024 Assessment & Plan (12/11/2023 11:19 PM CDT): - chronic condition - status: is adequately controlled. - current management/medications: Pravastatin 40 mg daily - other comorbid conditions:DM2 - patient is compliant with medications. - most recent LDL as shown below - maintain a healthy weight, diet - will monitor closely - continue current management Lab Results Component Value Date LDLCALC 60 06/02/2023 Lab Results Component Value Date ALT 18 10/30/2023 AST 19 10/30/2023 ALKPHOS 110 10/30/2023 BILITOT 0.5 10/30/2023 Assessment & Plan (06/15/2023 12:49 AM AUTOMOTIVE SALESPERSON): Well controlled on current therapy and will check a lipid panel and LFTs in 6 months. Assessment & Plan (11/25/2022 4:31 PM CDT): LDL well controlled on his statin therapy. Assessment & Plan (05/28/2022 10:10 AM AUTOMOTIVE SALESPERSON): Well controlled on current therapy and will check a lipid panel and LFTs in 6 months. Assessment & Plan (11/25/2021 8:50 AM CDT): Well controlled on current therapy and will check a lipid panel and LFTs in 6 months. Assessment & Plan (07/09/2021 8:20 PM AUTOMOTIVE SALESPERSON): Make sure he still taking his pravastatin and if still taking it, will need to change in alternate medication. Assessment & Plan (11/13/2020 9:58 AM CDT): Well controlled on current therapy and will check a lipid panel and LFTs in 6 months. Assessment & Plan (06/13/2020 2:44 PM AUTOMOTIVE SALESPERSON): Well controlled on current therapy and will check a lipid panel and LFTs in 6 months. Assessment & Plan (11/11/2019 2:32 PM CDT): Well controlled on current therapy and will check a lipid panel and LFTs in 6 months. Assessment & Plan (05/13/2019 9:43 AM CDT): Well controlled on current therapy and will check a lipid panel and LFTs in 6 months. Assessment & Plan (11/10/2018 3:50 AM CDT): On statin. Will hold for now while NPO. Assessment & Plan (11/08/2018 8:28 PM CDT): Well controlled on current therapy and will check a lipid panel and LFTs in 6 months. Assessment & Plan (03/08/2018 12:00 AM CDT): Well controlled on current therapy and will check a lipid panel and LFTs in 6 months. Assessment & Plan (10/29/2017 9:30 AM CDT): Well controlled on current therapy and will check a lipid panel and LFTs in 6 months. Assessment & Plan (10/28/2017 2:01 PM CDT): Well controlled on current therapy and will check a lipid panel and LFTs in 6 months. Resolved Problems Problem Noted Date Diagnosed Date Resolved Date Arthritis of knee 02/02/2024 05/31/2024 Exposure to potentially hazardous substance 10/30/2023 12/11/2023 Impacted cerumen, bilateral 10/30/2023 12/09/2023 Encounter for screening colonoscopy 09/04/2023 05/31/2024 Assessment & Plan (12/11/2023 11:21 PM CDT): - has [facility] scheduled for April of 2024 [facility] - has personal history of colon polyps BPPV (benign paroxysmal positional vertigo) 11/25/2022 05/31/2024 Assessment & Plan (11/25/2022 12:08 PM CDT): Declines PT referral. Rising PSA level 05/28/2022 12/11/2023 Assessment & Plan (05/28/2022 10:11 AM AUTOMOTIVE SALESPERSON): Asymptomatic. Check PSA again in 6 months. Contusion of rib on left side 05/07/2022 10/29/2023 Assessment & Plan (05/30/2022 2:25 PM AUTOMOTIVE SALESPERSON): Patient reassured that his pain should resolve over the next few weeks. Tylenol as needed. Call back if develops shortness of breath or any other concerns Thrombocytopenia 11/25/2021 12/11/2023 Assessment & Plan (06/15/2023 12:51 AM AUTOMOTIVE SALESPERSON): Mild Chronic stable and asymptomatic. Right lateral abdominal pain 01/15/2021 10/29/2023 Assessment & Plan (01/15/2021 10:36 AM CDT): I have discussed with the patient the findings on the CT scan. There is no hernia found. There is some degenerative disc disease but no clear-cut reason for the pain. As he is feeling better he does not want to pursue anything further at this time. We have discussed referral to 1 of the pain management to see if they could offer any relief. Alternatively we also discussed an MRI of the spine to see if there is any foraminal narrowing or musculoskeletal causes of the discomfort. If things become more worrisome for problematic he will call us back and we can proceed with some other options. Diastasis recti 01/02/2021 01/15/2021 Assessment & Plan (01/02/2021 8:44 AM CDT): The upper midline bulge I favor is actually a diastasis recti. I will however order a CT scan just to confirm there is no true fascial defect Abdominal wall hernia 01/02/20212020 Assessment & Plan (01/02/2021 8:45 AM CDT): The more concerning area for me is actually his right subcostal incision that there does appear to be somewhat of a weakness. It is little difficult to tell whether not there is just a weakness at the scar or a true fascial defect. Again the CT scan will help to rule this hernia in or out. We will then bring the patient back once the CT scan has been completed to further evaluate. He is in understanding of the plan. Rib injury 12/29/2019 10/29/2023 Assessment & Plan (12/29/2019 10:44 AM CDT): We discussed that rib fractures have no specific treatment and therefore he declines rib series. We also discussed that this could represent a pathologic fracture and rib series could potentially show some abnormalities of his bones that would need to be investigated further. He still declines. We also discussed that this could be considered a fragility fracture and that we should look for osteoporosis with a bone density scan but again he declines. He is aware the risks posed to his health with future fragility fractures which could be life altering if not life ending events. Acute calculous cholecystitis 11/10/2018 01/15/2021 Assessment & Plan (03/12/2019 9:03 AM CDT): Patient is back to his baseline functioning status and should follow up with his surgeon if he has any recurrence of symptoms. Assessment & Plan (11/10/2018 3:46 AM CDT): Patient admitted with complains of abdominal pain Acute calculous cholecystitis. Surgery was consulted . Patient planned for the OR in a.m. For possible on laparoscopic cholecystectomy. Will keep the patient NPO Obtain EKG Type and screen CBC BMP in a.m. Constipation 11/08/2018 10/29/2023 Assessment & Plan (11/08/2018 8:31 PM CDT): Start MiraLax daily. Medicare annual wellness visit, subsequent 10/29/2017 12/09/2023 Assessment & Plan (06/15/2023 12:51 AM AUTOMOTIVE SALESPERSON): We discussed a comprehensive list of medical conditions and proposed recommendations for each. We discussed the importance of increased exercise, fall prevention, proper nutrition, and suggested joining [facility] to accomplish most of these goals. Patient was given an age appropriate Medicare preventive services checklist. Please see the EMR regarding details of their health risk assessment and preventive services checklist. Will see him back in 6 months with lab sooner if needed. Assessment & Plan (05/28/2022 10:11 AM AUTOMOTIVE SALESPERSON): We discussed a comprehensive list of medical conditions and proposed recommendations for each. We discussed the importance of increased exercise, fall prevention, proper nutrition, and suggested joining [facility] to accomplish most of these goals. Patient was given an age appropriate Medicare preventive services checklist. Please see the EMR regarding details of their health risk assessment and preventive services checklist. Will see him back in 6 months with lab sooner if needed. Assessment & Plan (07/09/2021 8:21 PM AUTOMOTIVE SALESPERSON): We discussed a comprehensive list of medical conditions and proposed recommendations for each. We discussed the importance of increased exercise, fall prevention, proper nutrition, and suggested joining [facility] to accomplish most of these goals. Patient was given an age appropriate Medicare preventive services checklist. Please see the EMR regarding details of their health risk assessment and preventive services checklist. She get the date of his last tetanus and shingles vaccine date. Will see him back in 6 months with lab sooner if needed. Assessment & Plan (06/13/2020 2:44 PM AUTOMOTIVE SALESPERSON): We discussed a comprehensive list of medical conditions and proposed recommendations for each. We discussed the importance of increased exercise, fall prevention, proper nutrition, and suggested joining [facility] to accomplish most of these goals. Patient was given an age appropriate Medicare preventive services checklist. Please see the EMR regarding details of their health risk assessment and preventive services checklist. Will see him back in 6 months with lab sooner if needed. Assessment & Plan (05/13/2019 9:44 AM CDT): We discussed a comprehensive list of medical conditions and proposed recommendations for each. We discussed the importance of increased exercise, fall prevention, proper nutrition, and suggested joining [facility] to accomplish most of these goals. Patient was given an age appropriate Medicare preventive services checklist. Please see the EMR regarding details of their health risk assessment and preventive services checklist. Will see him back in 6 months with lab sooner if needed. Assessment & Plan (10/29/2017 9:31 AM CDT): We discussed a comprehensive list of medical conditions and proposed recommendations for each. We discussed the importance of increased exercise, fall prevention, proper nutrition, and suggested joining [facility] to accomplish most of these goals. Patient was given an age appropriate Medicare preventive services checklist. Please see the EMR regarding details of their health risk assessment and preventive services checklist. Will see him back in 4 months with fasting lab sooner if needed At low risk for fall 10/29/2017 024 Assessment & Plan (06/15/2023 12:49 AM AUTOMOTIVE SALESPERSON): Timed get up and go test normal. Assessment & Plan (05/28/2022 10:11 AM AUTOMOTIVE SALESPERSON): Timed get up and go test normal. Assessment & Plan (07/09/2021 8:21 PM AUTOMOTIVE SALESPERSON): Timed get up and go test normal. Assessment & Plan (06/13/2020 2:44 PM AUTOMOTIVE SALESPERSON): Timed get up and go test normal. Assessment & Plan (10/29/2017 9:31 AM CDT): Timed get up and go test normal. Hypogonadism in male 10/29/2017 018 Overweight with body mass in dex (BMI) of 27 to 27.9 in adult 09/30/2017 05/31/2024 Assessment & Plan (10/30/2023 12:28 PM CDT): Wt Readings from Last 3 Encounters: 10/30/23 85 kg (187 lb 4.8 oz) 10/16/23 86.5 kg (190 lb 11.2 oz) 10/16/23 86.5 kg (190 lb 11.2 oz) Body mass index is 27.65 kg/m . -Stable, at goal of <30 bmi -Discussed recommendations for exercise at least 30 minutes moderate to vigorous exercise most days of the week. (minimum 150 minutes weekly) -Discussed importance of well-balanced diet. Assessment & Plan (10/16/2023 1:28 PM CDT): Wt Readings from Last 3 Encounters: 10/16/23 86.5 kg (190 lb 11.2 oz) 09/11/23 84.8 kg (187 lb) 06/08/23 84.8 kg (187 lb) Body mass index is 28.16 kg/m . -slight weight gain noted -Discussed recommendations for exercise at least 30 minutes moderate to vigorous exercise most days of the week. (minimum 150 minutes weekly) -Discussed importance of well-balanced diet. Assessment & Plan (11/11/2019 2:33 PM CDT): Patient is encouraged to lose weight with a combination of caloric reduction and increased exercise. Assessment & Plan (10/28/2017 2:03 PM CDT): Patient is encouraged to lose weight with a combination of caloric reduction and increased exercise. Assessment & Plan (09/30/2017 2:29 PM CDT): Recommended patient to continue to increase heart healthy diet with adequate fruits, vegetables, and plenty of water along with mild-moderate daily exercise as tolerated. Healthcare maintenance 03/30/201705/28 Medication management 03/30/20172018 Erectile dysfunction due to arterial insufficiency 03/30/2017 11/25/2022 Assessment & Plan (11/13/2020 9:59 AM CDT): Urological referral recommended. Assessment & Plan (10/28/2017 2:02 PM CDT): Cialis p.r.n. not responding well to testosterone. Neuropathy associated with endocrine disorder 03/30/20 17 03/03/2018 Hypogonadism in male 03/30/2017 024 Overview (10/29/2017): NO benefit from injection therapy thus discontinued. Assessment & Plan (11/25/2022 4:31 PM CDT): Unfortunately did not improve symptoms including erectile dysfunction thus for going further use. Assessment & Plan (10/29/2017 9:31 AM CDT): Did not improve with testosterone therapy and thus discontinued. Assessment & Plan (10/28/2017 2:02 PM CDT): Continue testosterone for now but consider discontinuation if no improvement of symptoms. Urinary hesitancy 03/30/2017 10/29/2023 Sinusitis 01/08/2015 10/29/2017 Overview (10/16/2016): Sinusitis Assessment & Plan (09/30/2017 2:29 PM CDT): Clinically appears to be more of an ethmoid sinusitis based upon clinical presentation and history of condition. In further review of his history, he is taking Ceftin as well as amoxicillin for this condition to which he is noting there was a slight improvement in overall symptoms but everything presented back a medially after antibiotics received. He declined any alleviation from Flonase alone therefore I recommended a daily antihistamine such as Claritin or Zyrtec and also prescribed 21 day course of Augmentin twice a day for the full 21 days treating appropriately for chronic sinusitis. I did recommend follow-up in 3 weeks and if there is no improvement at that point time were going to order a sinus CT to see further into the possibility of chronic sinusitis and need for referral to ENT to discuss management further. Lymphoma in remission 07/17/20142017 Hypertension associated with diabetes 11/26/2013 12/09/2023 Assessment & Plan (06/15/2023 12:51 AM AUTOMOTIVE SALESPERSON): Blood pressure well controlled without medication. We discussed role of low-dose lisinopril in setting of diabetes and microalbuminuria. Suggested discussing this with [facility]. Assessment & Plan (11/25/2022 4:31 PM CDT): Blood pressure well controlled on lisinopril. Assessment & Plan (05/30/2022 2:26 PM AUTOMOTIVE SALESPERSON): Well controlled on the current regimen. Avoidance of salt, proper body weight, and routine exercise recommended. Assessment & Plan (05/28/2022 10:10 AM AUTOMOTIVE SALESPERSON): Blood pressure above goal today and with micro albuminuria would recommend restarting of his lisinopril 5 mg daily. Assessment & Plan (11/25/2021 8:50 AM CDT): Restart lisinopril. Assessment & Plan (07/09/2021 8:20 PM AUTOMOTIVE SALESPERSON): Well controlled on the current regimen. Avoidance of salt, proper body weight, and routine exercise recommended. Assessment & Plan (12/17/2020 8:45 AM CDT): Recommend DASH diet, heart-healthy lifestyle, exercise. Discussed the risks of hypertension. Assessment & Plan (11/13/2020 9:58 AM CDT): Well controlled on the current regimen. Avoidance of salt, proper body weight, and routine exercise recommended. Assessment & Plan (06/13/2020 2:43 PM AUTOMOTIVE SALESPERSON): Well controlled on the current regimen. Avoidance of salt, proper body weight, and routine exercise recommended. Assessment & Plan (11/11/2019 2:33 PM CDT): Well controlled on the current regimen. Avoidance of salt, proper body weight, and routine exercise recommended. Assessment & Plan (05/13/2019 9:44 AM CDT): Well controlled on the current regimen. Avoidance of salt, proper body weight, and routine exercise recommended. Assessment & Plan (03/12/2019 9:03 AM CDT): Well controlled on the current regimen. Avoidance of salt, proper body weight, and routine exercise recommended. Assessment & Plan (11/10/2018 3:49 AM CDT): Hold oral antihypertensives. Will manage with IV hydralazine 10 mg q.i.d. As needed for now -patient is NPO Assessment & Plan (11/08/2018 8:29 PM CDT): Well controlled on the current regimen. Avoidance of salt, proper body weight, and routine exercise recommended. Assessment & Plan (03/08/2018 12:00 AM CDT): Well controlled on the current regimen. Avoidance of salt, proper body weight, and routine exercise recommended. Assessment & Plan (10/29/2017 9:30 AM CDT): Well controlled on the current regimen. Avoidance of salt, proper body weight, and routine exercise recommended. Assessment & Plan (10/28/2017 2:00 PM CDT): Well controlled on the current regimen. Avoidance of salt, proper body weight, and routine exercise recommended. Encounters Date Type Department Care Team Description 08/03/2024 2:32 PM AUTOMOTIVE SALESPERSON - 08/03/2024 11:59 PM AUTOMOTIVE SALESPERSON [place] [address] Type 2 diabetes mellitus with hyperlipidemia (HCC) Discharge Disposition: Discharge to home or self care 08/02/2024 2:15 PM AUTOMOTIVE SALESPERSON Office Visit [facility] Medical [facility] at [address] [phone] Hair Ocasio MD Type 2 diabetes mellitus with hyperlipidemia (HCC) (Primary Dx); Skin cyst 06/01/2024 Telephone [facility] at [address] [phone] Hair Ocasio MD Eye Exam Records Request 05/31/2024 3:45 PM AUTOMOTIVE SALESPERSON Office Visit [facility] at [address] [phone] Hair Ocasio MD Medicare annual wellness visit, subsequent (Primary Dx); Type 2 diabetes mellitus with hyperlipidemia (HCC); Dyslipidemia associated with type 2 diabetes mellitus (HCC); PTSD (post-traumatic stress disorder); History of colonic polyps; Psychophysiological insomnia; S/P total knee arthroplasty, left; Tobacco dependence syndrome 05/26/2024 9:45 AM AUTOMOTIVE SALESPERSON Lab [address] [phone] Need for hepatitis B screening test; Type 2 diabetes mellitus with hyperlipidemia (HCC); Dyslipidemia associated with type 2 diabetes mellitus (HCC); Diabetic peripheral neuropathy (CMS/HCC) (HCC) from Last 3 Months Immunizations Name Administration Dates Next Due COVID-19 MRNA (MODERNA) .5 M L (50 MCG) VACCINE (12 YEARS AND UP) 05/09/2023 COVID-19 mRNA (PFIZER) 0.3 m L (30 mcg) vaccine (12 years and up) 04/15/2024 Influenza, Quad, Adjuvantate d, Intramuscular 04/23/2022 Influenza, Quadrivalent, Hig h Dose, Preservative Free, Intrr 05/09/2023,05/01/2021,04/26/2020,04/16 Influenza, Quadrivalent, Spl it, Intramuscular 03/29/2019 Influenza, Quadrivalent, Spl it, Preservative Free, Intramuscular 03/29/2019 Influenza, Split 04/01/2012,04/12/2011 Influenza, Trivalent, High D ose, Split, Preservative Free, Intramuscular 04/15/2024,04/16/2018,04/14/2017,05/05,05/18/2014 Influenza, Trivalent, IM (MDV) 04/12/2013,2008,04/04/2008 Influenza, Trivalent, Preser vative Free, Intramuscular 04/04/2015 Influenza, Unspecified 04/23/2022,2021,05/01/2021,05/02,04/28/2019,02/15/2019(Deferred: Patient Refused),04/16/2018,04/12/2018, 014,05/05/2013,05/13/2012,04/25/2011,1 ,06/23/2006 Moderna SARS-CoV-2 Monovalen t Vaccination (12+ YRS) 05/29/2022,04/23/2022,10/01/2020,09/22,09/10/2020,08/25/2020 Pfizer Sars-Cov-2 Bivalent V accination (6 MOS-4 YRS) 10/11/2022 Pneumococcal Conjugate PCV 13 06/27/2014 Pneumococcal Conjugate Pcv20 01/20/2022 Pneumococcal Polysaccharide PPV23 04/04/2015,,06/23/2006 Pneumococcal, Unspecified 06/23/2006 RSV Vaccine, Pref, Recombina nt, Subunit, Adjuvanted, PF, IM (Arexvy) 06/12/2023 Tdap 01/30/2021, 2,07/15/2011,07/13 ZOSTER Recombinant 05/08/2021,01/30/2021 Zoster, unspecified 05/13/2022 Surgical History Surgery Date Site/Laterality Comments OTHER SURGICAL HISTORY 08/18/2016 h/o hemiates lumbar disc L4-5: lumbar decompression BACK SURGERY 07/13/2005 - 07/12/2006 Back surgery KNEE ARTHROSCOPY 07/13/2013 - 07/12/2014 Right Arthroscopy knee CHOLECYSTECTOMY OPEN 11/10/2018 Partial, Dr Figueredo JOINT REPLACEMENT KNEE ARTHROSCOPY COLONOSCOPY 12/27/2013 REPLACEMENT TOTAL KNEE 02/02/2024 Left Medical History Medical History Date Comments Hx Other Medical 2006 h/o disectomy Polyp of colon colon polyps Hx Other Medical PN Hx Other Medical ED Hx Other Medical R neuralgia par ethesia Hx Other Medical h/o hemiates justin mbar disc L4-5 Hx Other Medical + microalbumin Hx Other 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, anapl astic diffuse large cell Diabetes mellitus (HCC) Diabetes Lymphoma (HCC) Cancer, lymphoma Hx Other Medical 08/23/2010 broken ankle Hx Other Medical 2010 SCL 70 + Hx Other Medical Right Knee Arth roscopy Medication monitoring encounter BMI 29.0-29.9,adult Rib injury Constipation Right lateral abdominal pain Contusion of rib on left side Urinary hesitancy Sleep apnea Type 2 diabetes mellitus (HCC) Family History Medical History Relation Name Comments Diabetes Brother Diabetes mellit us; Alzheimer's disease Mother Alzheime r's disease; Diabetes Other Family history of Diabetes mellitus; Relation Name Status Comments Brother Mother Other Social History Tobacco Use Types Packs/Day Years Used Date Smoking Tobacco: Every Day Cigarettes 1 56 Started: 09/10/1965 Pipe Smokeless Tobacco: Never Tobacco Cessation:Ready to Q uit: No; Counseling Given: Yes Alcohol Use Standard Drinks/Week Comments No 0 (1 standard drink = 0.6 oz pur e alcohol) AUDIT-C Answer Date Recorded Q1: How often do you have a drink containing alcohol? Never 08/02/2024 Q2: How many drinks containi ng alcohol do you have on a typical day when you are drinking? Patient does not drink Q3: How often do you have si x or more drinks on one occasion? Never 08/02/2024 PHQ-2 Answer Date Recorded PHQ-2 Total Score (If total score is 3 or more points, staff should administer the PHQ-9) 2 08/02/2024 Personal Safety Answer Date Recorded Have you ever been in or are you currently in a harmful physical or emotional relationship or is someone making you feel afraid or unsafe? Denies 04/27/2024 Sex and Gender Information Value Date Recorded Sex Assigned at Not on file Legal Sex Male 1:20 PM AUTOMOTIVE SALESPERSON Gender Identity Not on file Sexual Orientation Not on file Obstetrics History Last Filed Vital Signs Vital Sign Reading Time Taken Comments Blood Pressure 130/88 08/02/2024 1:56 PM AUTOMOTIVE SALESPERSON Pulse 108 08/02/2024 1:56 PM AUTOMOTIVE SALESPERSON Temperature 37.2 C (98.9 F) 08/02/2024 1:56 PM AUTOMOTIVE SALESPERSON Respiratory Rate 16 08/02/2024 1:56 PM AUTOMOTIVE SALESPERSON Oxygen Saturation 98% 08/02/2024 1:56 PM AUTOMOTIVE SALESPERSON Inhaled Oxygen Concentration - - Weight 88.2 kg (194 lb 8 oz) 08/02/2024 1:56 PM AUTOMOTIVE SALESPERSON Height 180.3 cm (5' 10.98 ) 08/02/2024 1:[address] Body Mass Index 27.14 08/02/2024 1:56 PM AUTOMOTIVE SALESPERSON Plan of Treatment Health Maintenance Due Date Last Done Comments Lung Cancer Screening 12/14/1995 Foot Exam 11/26/2023 11/25/2022, 05/13, 11/25/2021, Additional history exists Prostate Cancer Screening-PSA 06/02/2024, 11/21/2022, 05/23/2022, Additional history exists Covid-19 Vaccine ( season) 2024 04/15/2024, 05/09/2023, 10/11/2022, Additional history exists Dilated Eye Exam 11/11/2024 11/12/2023, , 12/20/2018, Additional history exists Hemoglobin A1C 11/23/2024 05/26/2024, 07/0 09/2023, 10/30/2023, Additional history exists Lipid Panel 05/26/2025 05/26/2024, 05/14, 11/21/2022, Additional history exists eGFR 05/26/2025 05/26/2024, 01/10, 10/30/2023, Additional history exists Well Visit 65+ 05/31/2025 05/31/2024, 05/14, 05/28/2022, Additional history exists Depression Screening 08/02/2025 08/02/2024, 05/31/2024, 12/09/2023, Additional history exists Fall Risk Assessment 08/02/2025 08/02/2024, 05/31/2024, 02/03/2024, Additional history exists Albumin Creatinine Ratio, Urine 08/03/2025 08/03/2024, 06/02/2023, 11/21/2022, Additional history exists DTaP/Tdap/Td Vaccine (5 - Td or Tdap) 01/30/2031 01/30/2021, 06/29/2012, 07/15/2011, Additional history exists Colon Cancer Screening-Colonoscopy 04/27/2034 04/27/2024, 12/27/2013, 12/27/2013, Additional history exists Abdominal Aortic Aneurysm (A AA) Screen Completed 01/11/2021, 11/08/2018 Pneumococcal vaccine 65+ Completed 022, 04/04/2015, 06/27/2014, Additional history exists Zoster Vaccine Completed 05/13/2022, 04/13, 01/30/2021 Hepatitis C Screening Completed 02/03/2024 , 06/08/2017, 06/08/2017 Influenza Vaccine Completed 04/15/2024, , 04/23/2022, Additional history exists Colon Cancer Screening-CT Colonography Discontinued 04/27/2024, 12/27/2013, 12/27/2013, Additional history exists Colon Cancer Screening-DNA Stool Discontinued 04/27/2024, 12/27/2013, 12/27/2013, Additional history exists Colon Cancer Screening-FIT Discontinued 04/27, 12/27/2013, 12/27/2013, Additional history exists Colon Cancer Screening-Sigmoidoscopy Discontinued 04/27/2024, 12/27/2013, 12/27/2013, Additional history exists Hepatitis B Screening Completed 05/26/2024 Medical Devices Implanted Type Area Certified Master Safecracker Device Identifier Shelf Expiration Date Model / Serial / Lot [employer] Attune Cruciate Retain Cementless Knee Left 8 Component Femoral [id number] - [id number] Implanted:Qty: 1 on 02/02/2024 by Evaristo Gomez MD at [facility] Left: Knee [employer] [id number] 06/11/2032 [id number] / / [id number] [employer] Tibial Baseplate Knee Porous Fixed Attune Affixium Size 8 Titanium [id number] - [id number] Implanted:Qty: 1 on 02/02/2024 by Evaristo Gomez MD at [facility] Left: Knee [employer] [id number] 12/10/2033 [id number] / / [id number] [employer] Insert Tibial Knee Fixed Lm Posterior Stabilized Attune 10mm Size 8 Polyethylene [id number] - [id number] Implanted:Qty: 1 on 02/02/2024 by Evaristo Gomez MD at [facility] Left: Knee [employer] [id number] 04/11/2030 [id number] / / [id number] Procedures Procedure Name Priority Date/Time Associated Diagnosis Comments ALBUMIN CREATININE RATIO, URINE Routine 08/03/2024 2:32 PM AUTOMOTIVE SALESPERSON Type 2 diabetes mellitus with hyperlipidemia (HCC) EGFR Routine 05/26/2024 9:49 AM AUTOMOTIVE SALESPERSON Type 2 diabetes mellitus with hyperlipidemia (HCC) Dyslipidemia associated with type 2 diabetes mellitus (HCC) DIFFERENTIAL AUTO Routine 05/26/2024 9:4 9 AM AUTOMOTIVE SALESPERSON Type 2 diabetes mellitus with hyperlipidemia (HCC) THYROID FUNCTION CASCADE Routine 05/26/2024 9:49 AM AUTOMOTIVE SALESPERSON Type 2 diabetes mellitus with hyperlipidemia (HCC) VITAMIN B12 Routine 05/26/2024 9:49 AM AUTOMOTIVE SALESPERSON Diabetic peripheral neuropathy (CMS/HCC) (HCC) FOLATE Routine 05/26/2024 9:49 AM AUTOMOTIVE SALESPERSON Diabetic peripheral neuropathy (CMS/HCC) (HCC) LIPID PANEL Routine 05/26/2024 9:49 AM AUTOMOTIVE SALESPERSON Type 2 diabetes mellitus with hyperlipidemia (HCC) Dyslipidemia associated with type 2 diabetes mellitus (HCC) HEMOGLOBIN A1C Routine 05/26/2024 9:49 AM AUTOMOTIVE SALESPERSON Type 2 diabetes mellitus with hyperlipidemia (HCC) COMPREHENSIVE METABOLIC PANEL Routine 05/26/2024 9:49 AM AUTOMOTIVE SALESPERSON Type 2 diabetes mellitus with hyperlipidemia (HCC) Dyslipidemia associated with type 2 diabetes mellitus (HCC) CBC WITH AUTO DIFFERENTIAL Routine 05/26/2024 9:49 AM AUTOMOTIVE SALESPERSON Type 2 diabetes mellitus with hyperlipidemia (HCC) HEPATITIS B SURFACE ANTIBODY (IMMUNE STATUS) Routine 05/26/2024 9:49 AM AUTOMOTIVE SALESPERSON Need for hepatitis B screening test HEPATITIS B CORE ANTIBODY, TOTAL Routine 05/26/2024 9:49 AM AUTOMOTIVE SALESPERSON Need for hepatitis B screening test HEPATITIS B SURFACE ANTIGEN Routine 05/26/2024 9:49 AM AUTOMOTIVE SALESPERSON Need for hepatitis B screening test COLONOSCOPY 04/27/2024 9:34 AM CDT HEPATITIS C ANTIBODY Routine 02/03/2024 9:52 AM CDT Exposure to blood-borne pathogen DIABETIC EYE EXAM Routine 11/12/2023 PSA SCREEN Routine 06/02/2023 10:52 AM AUTOMOTIVE SALESPERSON Screening PSA (prostate specific antigen) CT ABDOMEN PELVIS W CONTRAST Schedule Routine, Read Routine (OP Routine) 01/11/2021 4:11 PM CDT Abdominal wall hernia Diastasis recti HM DIABETES FOOT EXAM Routine 07/09/2016 from Last 3 Months or Most Recently Relevant to Health Maintenance Results * (ABNORMAL) Albumin Creatinine Ratio, Urine (08/03/2024 2:32 PM AUTOMOTIVE SALESPERSON) Albumin Ur 90.3 mg/L Comment: Interpretive Data No reference range established. Current interpretive data was last revised 2018. Creatinine Ur 23.4 mg/dL [facility] Comment: Interpretive Data No reference range established. Current interpretive data was last revised 2018. Albumin Creatinine Ratio, Ur 386(H) 1 - 29 mg/g [facility] Urine 08/03/2024 2:32 PM AUTOMOTIVE SALESPERSON 08/03/2024 9:07 PM AUTOMOTIVE SALESPERSON Hair Ocasio MD LAB URINE ORDERABLES Fi nal Result [facility] [id number] [address] Department of Laboratories [place] [address] * eGFR (05/26/2024 9:49 AM AUTOMOTIVE SALESPERSON) Pathologist [facility] eGFR >90 >=60 mL/min/1. 73 m2 Comment: Interpretive Data Reference Interval Normal >/= 90 mL/min/1.73m2 Mildly decreased* 60 - 89 mL/min/1.73m2 Mildly to moderately decreased 45 - 59 mL/min/1.73m2 Moderately to severely decreased 30 - 44 mL/min/1.73m2 Severely decreased 15 - 29 mL/min/1.73m2 Kidney Failure < 15 mL/min/1.73m2 *Relative to young adult level Estimated glomerular filtration rate is determined by the 2020 CKD-EPI equation recommended by the National Kidney Foundation (A Unifying Approach to GFR Estimation: Recommendations of the NKF-ASK Task Force on Reassessing the Inclusion of Race in Diagnosing Kidney Disease, JASN 2020). The CKD-EPI equation should not be used for patients with unstable renal function and has not been validated in children and those over 70. Current interpretive data was last reviewed 2021. Blood 05/26/2024 9:49 AM AUTOMOTIVE SALESPERSON 05/26/2024 10:24 AM AUTOMOTIVE SALESPERSON Hair Ocasio MD LAB BLOOD ORDERABLES Fi nal Result MICHI CHEN ([place]) 1 [facility] [place] [address] * Differential, auto (05/26/2024 9:49 AM AUTOMOTIVE SALESPERSON) Neutrophil abs 3.4 1.5 - 6.5 K/cumm Imm gran abs 0.1 0.0 - 0.1 K/cumm [facility] ([place]) Lymphocyte abs 1.2 0.8 - 3.3 K/cumm [facility] ([place]) Monocyte abs 0.7 0.2 - 0.8 K/cumm [facility] ([place]) Eosinophil abs 0.5 0.0 - 0.5 K/cumm [facility] ([place]) Basophil abs 0.1 0.0 - 0.1 K/cumm [facility] ([place]) Neutrophil pct 57.4 % [facility] (JERI) Comment: Interpretive Data Percent cell count reference ranges are not reported, since discordance with absolute values may lead to misinterpretation of CBC data. Current Interpretive Data was last revised on 2017. Imm gran pct 1.2 % [facility] ([place]ERI) Comment: Interpretive Data Percent cell count reference ranges are not reported, since discordance with absolute values may lead to misinterpretation of CBC data. Current Interpretive Data was last revised on 2017. Lymphocyte pct 19.9 % [facility] ([place]I) Comment: Interpretive Data Percent cell count reference ranges are not reported, since discordance with absolute values may lead to misinterpretation of CBC data. Current Interpretive Data was last revised on 2017. Monocyte pct 12.0 % [facility] ([place]ERI) Comment: Interpretive Data Percent cell count reference ranges are not reported, since discordance with absolute values may lead to misinterpretation of CBC data. Current Interpretive Data was last revised on 2017. Eosinophil pct 8.0 % [facility] ([place]I) Comment: Interpretive Data Percent cell count reference ranges are not reported, since discordance with absolute values may lead to misinterpretation of CBC data. Current Interpretive Data was last revised on 2017. Basophil pct 1.5 % [facility] ([place]ERI) Comment: Interpretive Data Percent cell count reference ranges are not reported, since discordance with absolute values may lead to misinterpretation of CBC data. Current Interpretive Data was last revised on 2017. Blood 05/26/2024 9:49 AM AUTOMOTIVE SALESPERSON 05/26/2024 10:24 AM AUTOMOTIVE SALESPERSON Hair Ocasio MD LAB BLOOD ORDERABLES Fi nal Result Performing Organization Address City/[facility]/ZIP Co de Phone Number MICHI CHEN (JERI) 1 [facility] [place] [address] * Thyroid Function [place] (05/26/2024 9:49 AM AUTOMOTIVE SALESPERSON) Pathologist [facility] TSH 2.06 0.30 - 4.20 mcIUnit/mL Blood 05/26/2024 9:49 AM AUTOMOTIVE SALESPERSON 05/26/2024 10:24 AM AUTOMOTIVE SALESPERSON Hair Ocasio MD LAB BLOOD ORDERABLES Fi nal Result Performing Organization Address [facility] Phone Number MICHI CHEN (JERI) 1 [facility] [place] [address] * (ABNORMAL) CBC with auto differential (05/26/2024 9:49 AM AUTOMOTIVE SALESPERSON) Pathologist [facility] WBC 6.0 3.8 - 9.9 K/cumm Hgb 16.4 13.0 - 17.5 g/dL [facility] ([place]) Hct 49.3 38.9 - 50.3 % [facility] ([place]) Plt 145(L) 150 - 400 K/cumm [facility] ([place]) MPV 10.6 9.1 - 12.3 fL [facility] ([place]) RBC 5.57 4.30 - 5.80 M/cumm [facility] ([place]) MCV 88.5 81.3 - 96.4 fL [facility] ([place]) MCH 29.4 27.1 - 33.3 pg [facility] ([place]) MCHC 33.3 32.3 - 35.7 g/dL [facility] ([place]) RDW CV 13.9 11.1 - 14.9 % [facility] ([place]ERI) RDW SD 44.8 35.7 - 48.1 fL [facility] ([place]) NRBC abs 0.00 0.00 - 0.01 K/cumm [facility] ([place]ERI) Blood 05/26/2024 9:49 AM AUTOMOTIVE SALESPERSON 05/26/2024 10:24 AM AUTOMOTIVE SALESPERSON Hari Ocasio MD LAB BLOOD ORDERABLES Fi nal Result Performing Organization Address City/[facility]/ZIP Co de Phone Number [facility] ([place]) 1 [facility] [place] [address] * Hepatitis B core antibody, total Blood (05/26/2024 9:49 AM AUTOMOTIVE SALESPERSON) Hep B core IgG/IgM Nonreactive Nonreactive Comment:Testing performed by : [facility], [address] [place] [address], [id number] Blood 05/26/2024 9:49 AM AUTOMOTIVE SALESPERSON 05/26/2024 12:07 PM AUTOMOTIVE SALESPERSON Hair Ocasio MD LAB MICROBIOLOGY - GENE RAL ORDERABLES Final Result Performing Organization Address [facility]/ZIP Co de Phone Number MICHI CHEN ([place]) 1 [facility] [place] [address] * Hepatitis B surface antibody (immune status) Blood (05/26/2024 9:49 AM AUTOMOTIVE SALESPERSON) HBsAb (immune status) Nonreactive Comment: Interpretive Data Nonreactive: This result is consistent with a lack of immunity to Hepatitis B Virus when used in the setting of routine screening. Equivocal: The immune status of the individual should be further assessed, if appropriate, after consideration of clinical status, risk factors, and additional diagnostic information. Reactive: This result is consistent with immunity to Hepatitis B Virus when used in the setting of routine screening. Current interpretive data was last revised on 19. Testing performed by: [facility], [address] [place] [address]., [id number] Blood 05/26/2024 9:49 AM AUTOMOTIVE SALESPERSON 05/26/2024 11:18 AM AUTOMOTIVE SALESPERSON us Hair Ocasio MD LAB MICROBIOLOGY - GENE RAL ORDERABLES Final Result Performing Organization Address [facility] [[email or web address]] Co de Phone Number MICHI CHEN (JERI) 1 [facility] [address] * Hepatitis B Surface Antigen Blood (05/26/2024 9:49 AM AUTOMOTIVE SALESPERSON) Pathologist [facility] HepBsAg Nonreactive Nonreactive Comment:Testing performed by : [facility], [address] [place] [address], [id number] Blood 05/26/2024 9:49 AM AUTOMOTIVE SALESPERSON 05/26/2024 11:18 AM AUTOMOTIVE SALESPERSON Hair Ocasio MD LAB MICROBIOLOGY - GENE RAL ORDERABLES Final Result Performing Organization Address [facility] de Phone Number NICKOLASMARY CHEN (JERI) 1 [facility] [address] * (ABNORMAL) Hemoglobin A1c (05/26/2024 9:49 AM AUTOMOTIVE SALESPERSON) Hgb A1C 7.9(H) 4.0 - 5.6 % Estimated Average Glucose 180 mg/dL MICHI CHEN (JERI) Comment: The ADA recommends reporting an estimated Average Glucose (eAG) with all Hemoglobin A1c results using the equation derived from a study of 507 normal and diabetic adults. Minority populations were underrepresented and children were not included. (Diabetes Care 31:4597-0055, 2008). The eAG is not equivalent to a fasting glucose. Blood 05/26/2024 9:49 AM AUTOMOTIVE SALESPERSON 05/26/2024 10:24 AM AUTOMOTIVE SALESPERSON us Hair Ocasio MD LAB BLOOD ORDERABLES Fi nal Result Performing Organization Address [facility] [[email or web address]] Co de Phone Number MICHI CHEN (H[place]) 1 [facility] [place] [address] * Folate (05/26/2024 9:49 AM AUTOMOTIVE SALESPERSON) Folic acid 13.0 >=5.0 ng/mL Comment:Slightly Hemolyzed S pecimen. Results may be affected. Blood 05/26/2024 9:49 AM AUTOMOTIVE SALESPERSON 05/26/2024 10:24 AM AUTOMOTIVE SALESPERSON Hair Ocasio MD LAB BLOOD ORDERABLES Fi nal Result [facility] ([place]) 1 [facility] [address] * Vitamin B12 (05/26/2024 9:49 AM AUTOMOTIVE SALESPERSON) Pathologist [facility] Vitamin B12 444 230 - 1,250 pg/mL Blood 05/26/2024 9:49 AM AUTOMOTIVE SALESPERSON 05/26/2024 10:24 AM AUTOMOTIVE SALESPERSON Hair Ocasio MD LAB BLOOD ORDERABLES Fi nal Result [facility] ([place]) 1 [facility] [address] * Lipid panel (05/26/2024 9:49 AM AUTOMOTIVE SALESPERSON) Cholesterol 131 30 - 199 mg/dL Comment: Interpretive Data Ages < or = 19 years Acceptable: <170 mg/dL Borderline high: 170-199 mg/dL High: >or= 200 mg/dL Ages > or = 20 years Desirable: <200 mg/dL Borderline high: 200-239 mg/dL High: >or= 240 mg/dL Literature References: 1. Expert Panel on Integrated Guidelines for Cardiovascular Health and Risk Reduction in Children and Adolescents. Pediatrics 2011;128:S213 2. NCEP Expert Panel. Circulation 2004;110:227 Current Interpretive Data was last revised on 2018. Triglycerides 99 <=149 mg/dL MICHI CHEN ([place]) Comment: Interpretive Data Ages < or = 9 years Acceptable: <75 mg/dL Borderline high: 75-99 mg/dL High: >or= 100 mg/dL Ages 10 to 20 years Acceptable: <90 mg/dL Borderline high: 90-129 mg/dL High: >or= 130 mg/dL Ages > or = 20 years Desirable: <150 mg/dL Borderline high: 150-199 mg/dL High: 200-499 mg/dL Very high: >or= 499 mg/dL Literature References: 1. Expert Panel on Integrated Guidelines for Cardiovascular Health and Risk Reduction in Children and Adolescents. Pediatrics 2011;128:S213 2. NCEP Expert Panel. Circulation 2004;110:227 Current Interpretive Data was last revised on 2018. HDL 49 >=40 mg/dL MICHI MCBR[facility]) Comment: Interpretive Data Ages < or = 19 years Acceptable: >45 mg/dL Borderline low: 40-45 mg/dL Low: <40 mg/dL Ages > or = 20 years Desirable: >or= 60 mg/dL Low: <40 mg/dL Literature References: 1. Expert Panel on Integrated Guidelines for Cardiovascular Health and Risk Reduction in Children and Adolescents. Pediatrics 2011;128:S213 2. NCEP Expert Panel. Circulation 2004;110:227 Current Interpretive Data was last revised on 2018. LDL, calculated 64 <=129 mg/dL MICHI MC[facility]) Comment: Interpretive Data Ages < or = 19 years Acceptable: <110 mg/dL Borderline high: 110-129 mg/dL High: >or= 130 mg/dL Ages > or = 20 years Optimal: <100 mg/dL Near optimal: 100-129 mg/dL Borderline high: 130-159 mg/dL High: >160 mg/dL Calculated using the David LDL-C estimating equation. This equation was implemented on 2024. Prior to this date LDL-C was estimated using the Friedewald equation. Literature References: 1. Expert Panel on Integrated Guidelines for Cardiovascular Health and Risk Reduction in Children and Adolescents. Pediatrics 2011;128:S213 2. NCEP Expert Panel. Circulation 2004;110:227 3. David Kimbrough al. JEFFREY Cardiol. 2020 November 10;5(5):540-548. doi: 10.1001/[email or web address].2020.0013 Current Interpretive Data was last revised on 2024. Non-HDL Cholesterol 82 mg/dL [facility] (JERI) Comment: Interpretive Data Ages < or = 19 years Acceptable: <120 mg/dL Borderline high: 120-144 mg/dL High: >145 mg/dL Ages > or = 20 years When triglycerides are >200 mg/dL, Non-HDL cholesterol is a secondary target of therapy with treatment goals that are 30 mg/dL greater than the LDL cholesterol target. Literature References: 1. Expert Panel on Integrated Guidelines for Cardiovascular Health and Risk Reduction in Children and Adolescents. Pediatrics 2011;128:S213 2. NCEP Expert Panel. Circulation 2004;110:227 Current Interpretive Data was last revised on 2018. Chol/HDL ratio 3 [facility] (JERI) Blood 05/26/2024 9:49 AM AUTOMOTIVE SALESPERSON 05/26/2024 10:24 AM AUTOMOTIVE SALESPERSON Narrative [facility] (JERI) - 05/26/2024 11:23 AM AUTOMOTIVE SALESPERSON Has the patient been fasting for 8 hours or more?->No Hair Ocasio MD LAB BLOOD ORDERABLES nal Result [facility] (JERI) 1 [facility] [place] [address] * Comprehensive metabolic panel (05/26/2024 9:49 AM AUTOMOTIVE SALESPERSON) Sodium 136 135 - 145 mmol/L Potassium, pl 3.9 3.3 - 4.9 mmol/L [facility] ([place]ERI) Chloride 99 97 - 110 mmol/L [facility] ([place]) CO2 25 22 - 32 mmol/L [facility] ([place]ERI) Anion gap 11 2 - 15 mmol/L [facility] ([place]ERI) BUN 15 6 - 25 mg/dL [facility] ([place]ERI) Creatinine 0.80 0.80 - 1.30 mg/dL [facility] ([place]ERI) Glucose 140 70 - 199 mg/dL [facility] ([place]ERI) Comment: Interpretive Data Fasting glucose >/= 126 mg/dl is diagnostic for diabetes. Fasting is defined as no caloric intake for at least 8 hours. Fasting glucose between 100 mg/dl to 125 mg/dl is diagnostic of prediabetes. In a patient with classic symptoms of hyperglycemia or hyperglycemic crisis, a random glucose >/= 200 mg/dl is diagnostic for diabetes. In the absence of unequivocal hyperglycemia, results should be confirmed by repeat testing. The classification and Diagnosis of Diabetes Diabetes Care 202; 46: S19-S40. Current interpretive data was last revised 2022. Calcium 9.1 8.5 - 10.3 mg/dL [facility] ([place]ERI) Bilirubin, total 0.4 0.1 - 1.2 mg/dL [facility] ([place]I) Protein, pl 6.7 6.5 - 8.5 g/dL [facility] ([place]ERI) Albumin 4.0 3.5 - 5.0 g/dL [facility] ([place]ERI) Alk phos 123 40 - 130 Units/L [facility] ([place]) ALT 9 7 - 55 Units/L [facility] ([place]ERI) AST 14 10 - 50 Units/L [facility] ([place]ERI) Blood 05/26/2024 9:49 AM AUTOMOTIVE SALESPERSON 05/26/2024 10:24 AM AUTOMOTIVE SALESPERSON us Hair Ocasio MD LAB BLOOD ORDERABLES Fi nal Result [facility] ([place]I) 1 [facility] [place] [address] * Colonoscopy (04/27/2024 9:34 AM CDT) Anatomical Region Laterality Modality Other Narrative Procedure Note Don Sandoval MD - 04/27/2024 9:34 AM CDT [facility] Patient Name: Syed Elliott Procedure Date: 04/27/2024 9:34 AM Date of : 1945 Admit Type: Outpatient Age: 78 Gender: Male Attending MD: Don Sandoval M.D. [facility] 1 Note Status: Finalized Patient Profile: Last Colonoscopy: December 2013. This is a 78 year old male. No family history of colon cancer. Nospecific GI complaints Procedure: Colonoscopy Indications: Screening for colorectal malignant neoplasm Referring MD: Dante Ratliff M.D. Providers: Don Sandoval M.D. Impression: - Three 10 to 12 mm polyps in the descending colonand in the ascending colon, removed with a cold snare. Resected and retrieved. - Diverticulosis in the sigmoid colon and at the hepatic flexure. - Internal hemorrhoids. Recommendation: - Await pathology results. - Repeat colonoscopy is not recommended forscreening purposes. - Patient medication history reviewed. Patient is appropriately not taking any medications. - Continue present medications. Medicines: Monitored Anesthesia Care Complications: No immediate complications. Estimated Blood Loss: Estimated blood loss: none. Procedure: Pre-Anesthesia Assessment: - Prior to the procedure, a History and Physicalwas performed, and patient medications and allergieswere reviewed. The patient's tolerance of previous anesthesia was also reviewed. The risks andbenefits of the procedure and the sedation options and risks were discussed with the patient. All questions were answered, and informed consent was obtained. Prior Anticoagulants: The patient has taken noanticoagulant or antiplatelet agents. ASA Grade Assessment: Per anesthesia note and evaluation. After reviewing the risks and benefits, the patient was deemed in satisfactory condition to undergo the procedure. The benefits, risks and alternatives of theprocedure and sedation were discussed and informed consentwas obtained. All questions were answered. Please referto the signed informed consent document in the medical record. The bowel preparation used was Miralax and bisacodyl tablets via split dose instruction. The scope was passed under direct vision. The Pediatric Colonoscope [id number] was introducedthrough the anus and advanced to the the cecum, identifiedby appendiceal orifice and ileocecal valve. Thequality of the bowel preparation was adequate. Bowel prepwas administered using a split dose. Findings: The perianal and digital rectal examinations were normal. The cecum appeared normal. Three semi-sessile polyps were found in the descending colon and ascending colon. The polyps were 10 to 12 mm in size. These polypswere removed with a cold snare. Resection and retrieval were complete. Multiple medium-mouthed diverticula were found in the sigmoid colonand hepatic flexure. Sharp angulations noted in the distal sigmoid colonas well as in the hepatic flexure to get into the ascending colon. Internal hemorrhoids were found during retroflexion. The hemorrhoids were small. Electronically signed by Don Sandoval M.D. Don Sandoval M.D. 04/27/2024 11:10:29 AM Number of Addenda: 0 Note Initiated On: 04/27/2024 9:34 AM Procedure Code(s): --- Professional --- 12219, Colonoscopy, flexible; with removal of tumor(s), polyp(s), or other lesion(s) by snare technique Diagnosis Code(s): --- Professional --- Z12.11, Encounter for screening for malignant neoplasm of colon K64.8, Other hemorrhoids D12.4, Benign neoplasm of descending colon D12.2, Benign neoplasm of ascending colon K57.30, Diverticulosis of large intestine without perforation orabscess without bleeding CPT copyright 2020 [employer]. All rights reserved. The codes documented in this report are preliminary and upon gallery intern reviewmay be revised to meet current compliance requirements. Recognized by the [employer] for promoting quality in endoscopy Don Sandoval MD ENDOSCOPY PROCEDURES Final Result * Hepatitis C antibody Blood (02/03/2024 9:52 AM CDT) Hep C Ab Nonreactive Nonreactive Comment: Interpretive Data Nonreactive: Antibodies to HCV not detected. Does NOT exclude the possibility of recent exposure to HCV. Equivocal: Equivocal for HCV antibodies. Supplemental molecular testing will be automatically performed to determine infection status in accordance with current CDC screening recommendations. Reactive: Positive for HCV antibodies. This may represent current or past HCV infection. Supplemental molecular testing will be automatically performed to determine current infection status in accordance with current CDC screening recommendations. Interpretive data was last revised on 2019. Testing performed by: [facility], [address] [place] [address]., [id number] Blood 02/03/2024 9:52 AM CDT 02/03/2024 11:29 AM CDT Narrative MICHI CHEN ([place]) - 02/03/2024 12:18 PM CDT Bill to [facility] [employer] - [employer] Patient is employed by/enrolled at:->[facility] Jasbir Qiu MD LAB MICROBIOLOGY - GENERAL OR DERABLES Final Result MICHI [facility]IL ([place]) 1 [facility] Department [place] [address] * Diabetic Eye Exam (11/12/2023) us Generic External Data Provider HEALTH MAINTENANC E Final Result * PSA screen (06/02/2023 10:52 AM AUTOMOTIVE SALESPERSON) PSA-Total 2.71 <=6.20 ng/mL MICHI CHEN ([place]) Comment: Interpretive Data AGE SEX REFERENCE INTERVAL 0 minutes-150 years Female None 0 minutes-49 years Male None 50-59 years Male 0-3.90 60-69 years Male 0-5.40 70-79 years Male 0-6.20 80-150 years Male 0-6.20 The Dariela PSA Total assay procedure was used. Results from different manufacturers or methods may not be comparable. Serial testing should be performed using the same method. Current interpretive data last revised 21. Blood 06/02/2023 10:5 2 AM AUTOMOTIVE SALESPERSON 06/02/2023 11:03 AM AUTOMOTIVE SALESPERSON us Dante Ratliff MD LAB BLOOD ORDERABLES Final R esult MICHI CHEN H[place]) 1 [facility] [place] [address] * CT Abdomen Pelvis W Contrast (01/11/2021 4:11 PM CDT) Anatomical Region Laterality Modality Body N/A Computed Tomogra phy 01/11/2021 7:43 PM CDT Narrative 01/11/2021 7:44 PM CDT EXAM DESCRIPTION: CT ABDOMEN PELVIS W CONTRAST REASON FOR STUDY: Right upper abdomen pain around incision site from cholecystectomy, history of large cell lymphoma with chemo, optiray 320 100 20 gauge right acDuration: over 1 month TECHNIQUE: CT scan of the abdomen and pelvis performed with intravenous and without oral contrast using helical scanning technique with dynamic intravenous contrast injection. Reconstructed coronal and sagittal MPR images reviewed. All images stored on PACS. Automated exposure control was used as a dose optimization technique for this examination. CONTRAST TYPE/DOSE: 100 of optiray 320 injected via right unknown COMPARISON: 11/08/2018 FINDINGS: LOWER CHEST: No significant pulmonary abnormalities. No effusion. LIVER: Normal size. No identified cystic or solid masses. GALLBLADDER: Cholecystectomy changes. BILE DUCTS: No intrahepatic or extrahepatic ductal dilatation. SPLEEN: Normal size. No focal lesions. PANCREAS: No identified cystic or solid masses. No significant calcifications. No adjacent inflammation or peripancreatic fluid collections. Pancreatic duct not dilated. ADRENALS: Normal. KIDNEYS/URINARY TRACT: Punctate nonobstructing right-sided nephrolithiasis. Renal cysts are present bilaterally without hydronephrosis. Urinary bladder is unremarkable. GI: No dilated bowel loops. No obvious wall thickening. Normal appendix. Scattered diverticular disease without diverticulitis. PERITONEUM: No ascites or free air. RETROPERITONEUM: Small retroperitoneal lymph nodes are stable in size measuring up to 1.1 cm. REPRODUCTIVE: No significant abnormality. VASCULATURE: Atherosclerotic disease in the aorta and iliacs MUSCULOSKELETAL: Multilevel degenerative changes are present without fracture. No concerning lesions are present. OTHER: No other abnormality. IMPRESSION: Cholecystectomy changes without evidence of a hernia. Diverticulosis. Small stable retroperitoneal lymph nodes. Enlarged prostate gland. Please correlate with PSA. THIS IS AN ELECTRONICALLY VERIFIED FINAL REPORT 01/11/2021 7:44 PM - Electronically signed by Todd Peoples M.D. NC: HENRIQUE Report ID: [id number] Reading Location: [id number] Procedure Note Todd Peoples MD - 01/11/2021 EXAM DESCRIPTION: CT ABDOMEN PELVIS W CONTRAST REASON FOR STUDY: Right upper abdomen pain around incision site from cholecystectomy, history of large cell lymphoma with chemo, optiray [id number] 20 gauge right acDuration: over 1 month TECHNIQUE: CT scan of the abdomen and pelvis performed with intravenousand without oral contrast using helical scanning technique with dynamic intravenous contrast injection. Reconstructed coronal and sagittal MPRimages reviewed. All images stored on PACS. Automated exposure control was used as a dose optimization technique forthis examination. CONTRAST TYPE/DOSE: 100 of optiray 320 injected via right unknown COMPARISON: 11/08/2018 FINDINGS: LOWER CHEST: No significant pulmonary abnormalities. No effusion. LIVER: Normal size. No identified cystic or solid masses. GALLBLADDER: Cholecystectomy changes. BILE DUCTS: No intrahepatic or extrahepatic ductal dilatation. SPLEEN: Normal size. No focal lesions. PANCREAS: No identified cystic or solid masses. No significant calcifications. No adjacent inflammation or peripancreatic fluidcollections. Pancreatic duct not dilated. ADRENALS: Normal. KIDNEYS/URINARY TRACT: Punctate nonobstructing right-sidednephrolithiasis. Renal cysts are present bilaterally without hydronephrosis. Urinarybladder is unremarkable. GI: No dilated bowel loops. No obvious wall thickening. Normal appendix. Scattered diverticular disease without diverticulitis. PERITONEUM: No ascites or free air. RETROPERITONEUM: Small retroperitoneal lymph nodes are stable in size measuring up to 1.1 cm. REPRODUCTIVE: No significant abnormality. VASCULATURE: Atherosclerotic disease in the aorta and iliacs MUSCULOSKELETAL: Multilevel degenerative changes are present without fracture. No concerning lesions are present. OTHER: No other abnormality. IMPRESSION: Cholecystectomy changes without evidence of a hernia. Diverticulosis. Small stable retroperitoneal lymph nodes. Enlarged prostate gland. Please correlate with PSA. THIS IS AN ELECTRONICALLY VERIFIED FINAL REPORT 01/11/2021 7:44 PM - Electronically signed by Todd Peoples M.D. [place]: [place] Report ID: [id number] Reading Location: [place] [address] Carlos Alberto Delarosa MD IMG CT PROCEDURE S Final Result * DIABETES FOOT EXAM (07/09/2016) Diabetic Foot Exam Unknown Historical Provider HEALTH MAINTENANCE Final Result from Last 3 Months or Most Recently Relevant to Health Maintenance Insurance MEDICARE [facility] MEDICARE [facility] MEDICARE [facility] Advance Directives For more information, please contact: [phone] * Full Code (Latest Code Status on File) Date Activated Date Inactivated Comments 04/27/2024 9:11 AM 04/27/2024 3:46 PM * Full Code Date Activated Date Inactivated Comments 04/27/2024 9:11 AM 04/27/2024 9:11 AM * Full Code Date Activated Date Inactivated Comments 02/02/2024 4:54 PM 02/03/2024 6:44 PM * Full Code Date Activated Date Inactivated Comments 11/09/2018 7:54 PM 11/11/2018 7:54 PM Care Teams Metal Mockup Maker Relationship Specialty Start Date End Date Hair Ocasio MD [address] SHRUTI England [facility] [address] [place] [address] PCP - General Family Medicine 10/16/23 Fidel Figueredo MD Referring Physician General Surgery 11/11/18 Evaristo Gomez MD [address] SHRUTI Lozada [facility] [address] [place] [address] Surgeon Orthopedic Surgery 12/09/23
--- OUTSIDE RECORDS SUMMARY | 2024-08-18 12:10 | XMS_ITS | Referral Summary ---
Author Organization [facility] A Address [address] [place] [address] Care Team Providers Care Wallpaper Inspector Name Role Phone Fidel Figueredo MD Unavailable [phone] Hair Ocasio MD Primary Care Provider Evaristo Gomez MD Unavailable [phone] Encounters Date Type Department Care Team Description 08/03/2024 2:32 PM QUOTE CLERK - 08/03/2024 11:59 PM QUOTE [place] [address] Type 2 diabetes mellitus with hyperlipidemia (HCC) Discharge Disposition: Discharge to home or self care 08/02/2024 2:15 PM QUOTE CLERK Office Visit [facility] at [address] [address] Hair Ocasio MD Type 2 diabetes mellitus with hyperlipidemia (HCC) (Primary Dx); Skin cyst 06/01/2024 Telephone [facility] at [address] [address] Hair Ocasio MD Eye Exam Records Request 05/31/2024 3:45 PM QUOTE CLERK Office Visit [facility] at [address] [address] Hair Ocasio MD Medicare annual wellness visit, subsequent (Primary Dx); Type 2 diabetes mellitus with hyperlipidemia (HCC); Dyslipidemia associated with type 2 diabetes mellitus (HCC); PTSD (post-traumatic stress disorder); History of colonic polyps; Psychophysiological insomnia; S/P total knee arthroplasty, left; Tobacco dependence syndrome 05/26/2024 9:45 AM QUOTE CLERK Lab [address] [address] Need for hepatitis B screening test; Type 2 diabetes mellitus with hyperlipidemia (HCC); Dyslipidemia associated with type 2 diabetes mellitus (HCC); Diabetic peripheral neuropathy (CMS/HCC) ([facility]) from Last 3 Months Allergies Active Allergy Reactions Criticality Noted Date [...] 08/02/2024 Assessment & Plan (08/02/2024 2:24 PM QUOTE CLERK): - new diagnosis - not consistent with [...] 09/04/2023 Assessment & Plan (05/31/2024 4:05 PM QUOTE CLERK): - has personal history of colon polyps [...] colonoscopy scheduled for April of 2024 at [facility] - has personal history of colon polyps PTSD (post-traumatic stress disorder) 11/25/2021 Overview (11/25/2021): Managed by [facility] psychiatry Assessment & Plan (05/31/2024 4:03 PM QUOTE CLERK): - chronic condition, stable status - follows and managed by Psychiatry at the [facility] - of PTSD, anxiety, depression - currently on Trazodone 50 mg nightly for sleep, Duloxetine DR 60 mg daily - continue current management Assessment & Plan (12/09/2023 3:05 PM CDT): - chronic condition, stable status - follows and managed by Psychiatry at the [facility] - of PTSD, anxiety, depression - currently on Trazodone 50 mg nightly for sleep, Duloxetine DR 60 mg daily - continue current management Assessment & Plan (05/28/2022 10:09 AM QUOTE CLERK): Stable on current medication regimen should follow-up with psychiatrist as they direct. Assessment & Plan (11/25/2021 8:50 AM CDT): Stable on duloxetine and should follow-up with his [facility] psychiatrist. 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 Erectile dysfunction 11/13/2020 Assessment [...] with ankle brachial indexes was ordered at [facility] thus it was medically necessary. Assessment & Plan (11/08/2018 8:30 PM CDT): Will confirm abnormal test with BRAULIO at [facility]. Psychophysiological insomnia 03/03/2018 Assessment & Plan (05/31/2024 4:03 PM QUOTE CLERK): - chronic condition, stable status - has known anxiety and depression - managed by his psychiatrist, currently on trazodone 50 mg on a nightly basis through the [facility] - continue current management Assessment & Plan (12/11/2023 11:18 PM CDT): - chronic condition, stable status - has known anxiety and depression - managed by his psychiatrist, currently on [facility] - continue current management Assessment & Plan (11/25/2022 4:30 PM CDT): Advised him to avoid Xanax for sleep. Recommended trying trazodone or Belsomra or Ambien. Follow-up with his psychiatrist for management. Assessment & Plan (11/25/2021 8:50 AM CDT): Follow-up with his [facility] psychiatrist. Assessment & Plan (07/09/2021 8:21 PM QUOTE CLERK): Trial of trazodone 50 mg at bedtime [...] FOLATE Assessment & Plan (05/30/2022 2:26 PM QUOTE CLERK): Patient plans on Tonny Chi for balance training at the [facility]. Physical therapy offered for balance training as well but declined. Call back if changes his mind Assessment & Plan (05/28/2022 10:11 AM QUOTE CLERK): Stable on gabapentin and duloxetine. Assessment & Plan (11/25/2021 8:50 AM CDT): Well controlled on gabapentin and duloxetine. Assessment & Plan (07/09/2021 8:20 PM QUOTE CLERK): Stable on gabapentin. Assessment & Plan (11/13/2020 9:58 AM CDT): Better controlled on increased dose of gabapentin. Assessment & Plan (06/13/2020 2:44 PM QUOTE CLERK): Increase gabapentin and call back if no [...] chemo with neuropathy complicating. Discharged from heme/onc 2016 with recs for yearly cbc. Assessment & Plan (06/15/2023 12:49 AM QUOTE CLERK): Asymptomatic and CBC remains normal. Refer back to Heme-Onc if needed. Assessment & Plan (05/28/2022 10:10 AM QUOTE CLERK): Asymptomatic and CBC remains normal. CBC yearly [...] Zyrtec Assessment & Plan (06/13/2020 2:43 PM QUOTE CLERK): Add Fluticasone to his Zyrtec. Assessment & [...] hyperlipidemia Assessment & Plan (05/31/2024 4:24 PM QUOTE CLERK): - chronic, worse/not at goal - managed [...] 10/30/2023 Assessment & Plan (06/15/2023 12:54 AM QUOTE CLERK): We discussed newer medications on the market [...] loss. Assessment & Plan (05/28/2022 10:09 AM QUOTE CLERK): A1c above goal. Importance of diet exercise discussed at length. He should discuss with his [facility] alternatives/additions to his current medication regimen. Assessment & Plan (11/25/2021 8:50 AM CDT): A1c just above goal. Focus on diet exercise. Continue current medication regimen. Microalbumin creatinine ratio rising and I would recommend restarting his [facility]opril [facility] the [facility]. Assessment & Plan (07/09/2021 8:19 PM QUOTE CLERK): A1c above goal. He should discuss changing [...] visit. Assessment & Plan (06/13/2020 2:43 PM QUOTE CLERK): A1c, LDL, and blood pressure currently well [...] CPAP Assessment & Plan (05/28/2022 10:10 AM QUOTE CLERK): Home sleep study to verify presence of sleep apnea remains and then order new APAP machine. Assessment & Plan (07/09/2021 8:19 PM QUOTE CLERK): Patient is compliant with the CPAP machine and gets symptomatic relief. Assessment & Plan (11/13/2020 9:58 AM CDT): Patient is compliant with the CPAP machine and gets symptomatic relief. Assessment & Plan (06/13/2020 2:43 PM QUOTE CLERK): Patient is compliant with the CPAP machine [...] 11/26/2013 Assessment & Plan (08/02/2024 2:15 PM QUOTE CLERK): Social History Tobacco Use Smoking Status Every Day Average packs/day: 1 pack/day for 56.0 years (56.0 ttl pk-yrs) Types: Pipe, Cigarettes Start date: 09/10/1965 Smokeless Tobacco Never - chronic condition, not at goal - assessed patient readiness for tobacco smoking cessation - discussed the importance of tobacco smoking cessation with goal of being tobacco free Assessment & Plan (05/31/2024 4:17 PM QUOTE CLERK): Social History Tobacco Use Smoking Status Former [...] length. Assessment & Plan (06/13/2020 2:44 PM QUOTE CLERK): Nicotine replacement therapy and smoking cessation counseling [...] 11/26/2013 Assessment & Plan (05/31/2024 4:05 PM QUOTE CLERK): - chronic condition - status: is adequately [...] 10/30/2023 Assessment & Plan (06/15/2023 12:49 AM QUOTE CLERK): Well controlled on current therapy and will check a lipid panel and LFTs in 6 months. Assessment & Plan (11/25/2022 4:31 PM CDT): LDL well controlled on his statin therapy. Assessment & Plan (05/28/2022 10:10 AM QUOTE CLERK): Well controlled on current therapy and will check a lipid panel and LFTs in 6 months. Assessment & Plan (11/25/2021 8:50 AM CDT): Well controlled on current therapy and will check a lipid panel and LFTs in 6 months. Assessment & Plan (07/09/2021 8:20 PM QUOTE CLERK): Make sure he still taking his pravastatin and if still taking it, will need to change in alternate medication. Assessment & Plan (11/13/2020 9:58 AM CDT): Well controlled on current therapy and will check a lipid panel and LFTs in 6 months. Assessment & Plan (06/13/2020 2:44 PM QUOTE CLERK): Well controlled on current therapy and will [...] colonoscopy scheduled for April of 2024 at [facility] - has personal history of colon polyps BPPV (benign paroxysmal positional vertigo) 11/25/2022 05/31/2024 Assessment & Plan (11/25/2022 12:08 PM CDT): Declines PT referral. Rising PSA level 05/28/2022 12/11/2023 Assessment & Plan (05/28/2022 10:11 AM QUOTE CLERK): Asymptomatic. Check PSA again in 6 months. Contusion of rib on left side 05/07/2022 10/29/2023 Assessment & Plan (05/30/2022 2:25 PM QUOTE CLERK): Patient reassured that his pain should resolve over the next few weeks. Tylenol as needed. Call back if develops shortness of breath or any other concerns Thrombocytopenia 11/25/2021 12/11/2023 Assessment & Plan (06/15/2023 12:51 AM QUOTE CLERK): Mild Chronic stable and asymptomatic. Right lateral [...] 12/09/2023 Assessment & Plan (06/15/2023 12:51 AM QUOTE CLERK): We discussed a comprehensive list of medical [...] needed. Assessment & Plan (05/28/2022 10:11 AM QUOTE CLERK): We discussed a comprehensive list of medical [...] needed. Assessment & Plan (07/09/2021 8:21 PM QUOTE CLERK): We discussed a comprehensive list of medical [...] needed. Assessment & Plan (06/13/2020 2:44 PM QUOTE CLERK): We discussed a comprehensive list of medical [...] needed At low risk for fall 10/29/2017 0529/2 024 Assessment & Plan (06/15/2023 12:49 AM QUOTE CLERK): Timed get up and go test normal. Assessment & Plan (05/28/2022 10:11 AM QUOTE CLERK): Timed get up and go test normal. Assessment & Plan (07/09/2021 8:21 PM QUOTE CLERK): Timed get up and go test normal. Assessment & Plan (06/13/2020 2:44 PM QUOTE CLERK): Timed get up and go test normal. [...] Assessment & Plan (10/28/2017 2:02 PM CDT): Ciacarlies p.r.n. not responding well to testosterone. Neuropathy [...] 12/09/2023 Assessment & Plan (06/15/2023 12:51 AM QUOTE CLERK): Blood pressure well controlled without medication. We discussed role of low-dose lisinopril in setting of diabetes and microalbuminuria. Suggested discussing this with his [facility] provider. Assessment & Plan (11/25/2022 4:31 PM CDT): Blood pressure well controlled on lisinopril. Assessment & Plan (05/30/2022 2:26 PM QUOTE CLERK): Well controlled on the current regimen. Avoidance of salt, proper body weight, and routine exercise recommended. Assessment & Plan (05/28/2022 10:10 AM QUOTE CLERK): Blood pressure above goal today and with micro albuminuria would recommend restarting of his lisinopril 5 mg daily. Assessment & Plan (11/25/2021 8:50 AM CDT): Restart lisinopril. Assessment & Plan (07/09/2021 8:20 PM QUOTE CLERK): Well controlled on the current regimen. Avoidance of salt, proper body weight, and routine exercise recommended. Assessment & Plan (12/17/2020 8:45 AM CDT): Recommend DASH diet, heart-healthy lifestyle, exercise. Discussed the risks of hypertension. Assessment & Plan (11/13/2020 9:58 AM CDT): Well controlled on the current regimen. Avoidance of salt, proper body weight, and routine exercise recommended. Assessment & Plan (06/13/2020 2:43 PM QUOTE CLERK): Well controlled on the current regimen. Avoidance [...] proper body weight, and routine exercise recommended. Immunizations Name Administration Dates Next Due COVID-19 [...] 2,07/15/2011,07/13 ZOSTER Recombinant 05/08/2021,01/30/2021 Zoster, unspecified 05/13/2022 Social History Tobacco Use Types Packs/Day Years [...] on file Legal Sex Male 1:20 PM QUOTE CLERK Gender Identity Not on file Sexual Orientation Not on file Last Filed Vital Signs Vital Sign Reading Time Taken Comments Blood Pressure 130/88 08/02/2024 1:56 PM QUOTE CLERK Pulse 108 08/02/2024 1:56 PM QUOTE CLERK Temperature 37.2 C (98.9 F) 08/02/2024 1:56 PM QUOTE CLERK Respiratory Rate 16 08/02/2024 1:56 PM QUOTE CLERK Oxygen Saturation 98% 08/02/2024 1:56 PM QUOTE CLERK Inhaled Oxygen Concentration - - Weight 88.2 kg (194 lb 8 oz) 08/02/2024 1:56 PM QUOTE CLERK Height 180.3 cm (5' 10.98 ) 08/02/2024 1:[address] Body Mass Index 27.14 08/02/2024 1:56 PM QUOTE CLERK Plan of Treatment Not on file Medical Devices Implanted Type Area Manager Strategic Device Identifier Shelf Expiration Date Model / Serial / Lot [employer] Attune Cruciate Retain Cementless Knee Left 8 Component Femoral [id number] - [id number] Implanted:Qty: 1 on 02/02/2024 by Evaristo Gomez MD at [facility] Left: Knee [employer] [id number] 06/11/2032 [id number] / / [id number] [employer] Tibial Baseplate Knee Porous Fixed Attune Affixium Size 8 Titanium [id number] - [id number] Implanted:Qty: 1 on 02/02/2024 by Evaristo Gomez MD at [facility] Left: Knee [employer] [id number] 12/10/2033 [id number] / / [id number] [employer] Insert Tibial Knee Fixed Lm Posterior Stabilized Attune 10mm Size 8 Polyethylene [id number] - [id number] Implanted:Qty: 1 on 02/02/2024 by Evaristo Gomez MD at [facility] Left: Knee [employer] [id number] 04/11/2030 [id number] / / [id number] Procedures Procedure Name Priority Date/Time Associated Diagnosis Comments ALBUMIN CREATININE RATIO, URINE Routine 08/03/2024 2:32 PM QUOTE CLERK Type 2 diabetes mellitus with hyperlipidemia (HCC) EGFR Routine 05/26/2024 9:49 AM QUOTE CLERK Type 2 diabetes mellitus with hyperlipidemia (HCC) Dyslipidemia associated with type 2 diabetes mellitus (HCC) DIFFERENTIAL AUTO Routine 05/26/2024 9:4 9 AM QUOTE CLERK Type 2 diabetes mellitus with hyperlipidemia (HCC) THYROID FUNCTION CASCADE Routine 05/26/2024 9:49 AM QUOTE CLERK Type 2 diabetes mellitus with hyperlipidemia (HCC) VITAMIN B12 Routine 05/26/2024 9:49 AM QUOTE CLERK Diabetic peripheral neuropathy (CMS/HCC) (HCC) FOLATE Routine 05/26/2024 9:49 AM QUOTE CLERK Diabetic peripheral neuropathy (CMS/HCC) (HCC) LIPID PANEL Routine 05/26/2024 9:49 AM QUOTE CLERK Type 2 diabetes mellitus with hyperlipidemia (HCC) Dyslipidemia associated with type 2 diabetes mellitus (HCC) HEMOGLOBIN A1C Routine 05/26/2024 9:49 AM QUOTE CLERK Type 2 diabetes mellitus with hyperlipidemia (HCC) COMPREHENSIVE METABOLIC PANEL Routine 05/26/2024 9:49 AM QUOTE CLERK Type 2 diabetes mellitus with hyperlipidemia (HCC) Dyslipidemia associated with type 2 diabetes mellitus (HCC) CBC WITH AUTO DIFFERENTIAL Routine 05/26/2024 9:49 AM QUOTE CLERK Type 2 diabetes mellitus with hyperlipidemia (HCC) HEPATITIS B SURFACE ANTIBODY (IMMUNE STATUS) Routine 05/26/2024 9:49 AM QUOTE CLERK Need for hepatitis B screening test HEPATITIS B CORE ANTIBODY, TOTAL Routine 05/26/2024 9:49 AM QUOTE CLERK Need for hepatitis B screening test HEPATITIS B SURFACE ANTIGEN Routine 05/26/2024 9:49 AM QUOTE CLERK Need for hepatitis B screening test COLONOSCOPY 04/27/2024 9:34 AM CDT HEPATITIS C ANTIBODY Routine 02/03/2024 9:52 AM CDT Exposure to blood-borne pathogen DIABETIC EYE EXAM Routine 11/12/2023 PSA SCREEN Routine 06/02/2023 10:52 AM QUOTE CLERK Screening PSA (prostate specific antigen) CT ABDOMEN PELVIS W CONTRAST Schedule Routine, Read Routine (OP Routine) 01/11/2021 4:11 PM CDT Abdominal wall hernia Diastasis recti HM DIABETES FOOT EXAM Routine 07/09/2016 from Last 3 Months or Most Recently Relevant to Health Maintenance Results * (ABNORMAL) Albumin Creatinine Ratio, Urine (08/03/2024 2:32 PM QUOTE CLERK) Albumin Ur 90.3 mg/L Comment: Interpretive Data No reference range established. Current interpretive data was last revised 2018. Creatinine Ur 23.4 mg/dL [facility] Comment: Interpretive Data No reference range established. Current interpretive data was last revised 2018. Albumin Creatinine Ratio, Ur 386(H) 1 - 29 mg/g [facility] Urine 08/03/2024 2:32 PM QUOTE CLERK 08/03/2024 9:07 PM QUOTE CLERK Hair Ocasio MD LAB URINE ORDERABLES Fi nal Result MIC[facility] [address] Department [place] [address] * eGFR (05/26/2024 9:49 AM QUOTE CLERK) eGFR >90 >=60 mL/min/1. 73 m2 Comment: [...] last reviewed 2021. Blood 05/26/2024 9:49 AM QUOTE CLERK 05/26/2024 10:24 AM QUOTE CLERK Hair Ocasio MD LAB BLOOD ORDERABLES Fi nal Result MICHI CHEN (LANE) 1 [facility] Department [place] [address] * Differential, auto (05/26/2024 9:49 AM QUOTE CLERK) Neutrophil abs 3.4 1.5 - 6.5 K/cumm [...] revised on 2017. Blood 05/26/2024 9:49 AM QUOTE CLERK 05/26/2024 10:24 AM QUOTE CLERK Hair Ocasio MD LAB BLOOD ORDERABLES Fi nal Result Performing Organization Address City/[facility]/ZIP Co de Phone Number MICHI CHEN (JERI) 1 [facility] [place] [address] * Thyroid Function [place] (05/26/2024 9:49 AM QUOTE CLERK) [facility] TSH 2.06 0.30 - 4.20 mcIUnit/mL Blood 05/26/2024 9:49 AM QUOTE CLERK 05/26/2024 10:24 AM QUOTE CLERK Hair Ocasio MD LAB BLOOD ORDERABLES Fi nal Result Performing Organization Address [facility] de Phone Number MICHI CHEN (JERI) 1 [facility] [place] [address] * (ABNORMAL) CBC with auto differential (05/26/2024 9:49 AM QUOTE CLERK) Pathologist [facility] WBC 6.0 3.8 - 9.9 K/cumm Hgb 16.4 13.0 - 17.5 g/dL [facility] ([facility] Hct 49.3 38.9 - 50.3 % [facility] ([place]) Plt 145(L) 150 - 400 K/cumm [facility] ([place]) MPV 10.6 9.1 - 12.3 fL [facility] ([place]) RBC 5.57 4.30 - 5.80 M/cumm [facility] ([place]) MCV 88.5 81.3 - 96.4 fL [facility] ([place]) MCH 29.4 27.1 - 33.3 pg [facility] ([facility]) MCHC 33.3 32.3 - 35.7 g/dL [facility] (JERI) RDW CV 13.9 11.1 - 14.9 % [facility] CHEN (JERI) RDW SD 44.8 35.7 - 48.1 fL [facility] CHEN (JERI) NRBC abs 0.00 0.00 - 0.01 K/cumm [facility] CHEN (JERI) Blood 05/26/2024 9:49 AM QUOTE CLERK 05/26/2024 10:24 AM QUOTE CLERK Hair Ocasio MD LAB BLOOD ORDERABLES Fi nal Result MICHI CHEN (LANE) 1 [facility] [place] [address] * Hepatitis B core antibody, total Blood (05/26/2024 9:49 AM QUOTE CLERK) Hep B core IgG/IgM Nonreactive Nonreactive Comment:Testing performed by : [facility], [address] [place] [address], [id number] Blood 05/26/2024 9:49 AM QUOTE CLERK 05/26/2024 12:07 PM QUOTE CLERK Hair Ocasio MD LAB MICROBIOLOGY - GENE RAL ORDERABLES Final Result Performing Organization Address City/[facility]/ZIP Co de Phone Number MICHI CHEN (LANE) 1 [facility] [place] [address] * Hepatitis B surface antibody (immune status) Blood (05/26/2024 9:49 AM QUOTE CLERK) HBsAb (immune status) Nonreactive Comment: Interpretive Data [...] last revised on 19. Testing performed by: [facility], [address] [place] [address]., [id number] Blood 05/26/2024 9:49 AM QUOTE CLERK 05/26/2024 11:18 AM QUOTE CLERK us Hair Ocasio MD LAB MICROBIOLOGY - GENE RAL ORDERABLES Final Result Performing Organization Address [facility]/ZIP Co de Phone Number MICHI CHEN (LANE) 1 [facility] [place] [address] * Hepatitis B Surface Antigen Blood (05/26/2024 9:49 AM QUOTE CLERK) Pathologist [facility] HepBsAg Nonreactive Nonreactive Comment:Testing performed by : [facility], [address] [place] [address], [id number] Blood 05/26/2024 9:49 AM QUOTE CLERK 05/26/2024 11:18 AM QUOTE CLERK Hair Ocasio MD LAB MICROBIOLOGY - GENE RAL ORDERABLES Final Result Performing Organization Address [facility] de Phone Number MICHI CHEN (LANE) [address] [place] [address] * (ABNORMAL) Hemoglobin A1c (05/26/2024 9:49 AM QUOTE CLERK) Pathologist [facility] Hgb A1C 7.9(H) 4.0 - 5.6 % Estimated Average Glucose 180 mg/dL MICHI CHEN (JERI) Comment: The ADA recommends reporting an estimated Average Glucose (eAG) with all Hemoglobin A1c results using the equation derived from a study of 507 normal and diabetic adults. Minority populations were underrepresented and children were not included. (Diabetes Care 31:1680-0640, 2008). The eAG is not equivalent to a fasting glucose. Blood 05/26/2024 9:49 AM QUOTE CLERK 05/26/2024 10:24 AM QUOTE CLERK us Hair Ocasio MD LAB BLOOD ORDERABLES Fi nal Result Performing Organization Address [facility]/ZIP Co de Phone Number MICHI CHEN (LANE) 1 [facility] [place] [address] * Folate (05/26/2024 9:49 AM QUOTE CLERK) Folic acid 13.0 >=5.0 ng/mL Comment:Slightly Hemolyzed S pecimen. Results may be affected. Blood 05/26/2024 9:49 AM QUOTE CLERK 05/26/2024 10:24 AM QUOTE CLERK Hair Ocasio MD LAB BLOOD ORDERABLES Fi nal Result MICHI CHEN (LANE) 1 [facility] [place] [address] * Vitamin B12 (05/26/2024 9:49 AM QUOTE CLERK) Pathologist [facility] Vitamin B12 444 230 - 1,250 pg/mL Blood 05/26/2024 9:49 AM QUOTE CLERK 05/26/2024 10:24 AM QUOTE CLERK Hair Ocasio MD LAB BLOOD ORDERABLES Fi nal Result MICHI CHEN (LANE) 1 [facility] [place] [address] * Lipid panel (05/26/2024 9:49 AM QUOTE CLERK) Cholesterol 131 30 - 199 mg/dL Comment: [...] 2018. Triglycerides 99 <=149 mg/dL MIC[facility] CHEN (JERI) Comment: Interpretive Data Ages < or [...] on 2018. HDL 49 >=40 mg/dL [facility] (JERI) Comment: Interpretive Data Ages < or [...] NCEP Expert Panel. Circulation 2004;110:227 3. David Miller. JEFFREY Cardiol. 2020 November 10;5(5):540-548. doi: 10.1001/[email or web address].2020.0013 [...] [facility] (JERI) Blood 05/26/2024 9:49 AM QUOTE CLERK 05/26/2024 10:24 AM QUOTE CLERK Narrative [facility] (JERI) - 05/26/2024 11:23 AM QUOTE CLERK Has the patient been fasting for 8 hours or more?->No Hair Ocasio MD LAB BLOOD ORDERABLES nal Result [facility] (JERI) 1 [facility] Department [place] [address] * Comprehensive metabolic panel (05/26/2024 9:49 AM QUOTE CLERK) Sodium 136 135 - 145 mmol/L Potassium, [...] classification and Diagnosis of Diabetes Diabetes Care 2021; 46: S19-S40. Current interpretive data was last [...] [facility] (JERI) Blood 05/26/2024 9:49 AM QUOTE CLERK 05/26/2024 10:24 AM QUOTE CLERK us Hair Ocasio MD LAB BLOOD ORDERABLES Fi nal Result [facility] (JERI) 1 [facility] Department of Laboratories [place], [place] [id number] * Colonoscopy (04/27/2024 9:34 AM CDT) Anatomical Region Laterality Modality Other Narrative Procedure Note Don Sandoval MD - 04/27/2024 9:34 AM CDT [facility] Patient Name: Syed Elliott Procedure Date: 04/27/2024 9:34 AM Date of : 1945 Admit Type: Outpatient Age: 78 Gender: Male Attending MD: Don Sandoval M.D. Room: [facility] ENDOSCOPY ROOM 1 Note Status: Finalized [...] under direct vision. The Pediatric Colonoscope [id number] was introducedthrough the anus and advanced to [...] 9:34 AM Procedure Code(s): --- Professional --- 06830, Colonoscopy, flexible; with removal of tumor(s), polyp(s), or other lesion(s) by snare technique Diagnosis Code(s): --- Professional --- Z12.11, Encounter for screening for malignant neoplasm of colon K64.8, Other hemorrhoids D12.4, Benign neoplasm of descending colon D12.2, Benign neoplasm of ascending colon K57.30, Diverticulosis of large intestine without perforation orabscess without bleeding CPT copyright 2020 [employer]. All rights reserved. The codes documented in this report are preliminary and upon sugar grinder reviewmay be revised to meet current compliance requirements. Recognized by the [employer] for promoting quality [...] last revised on 2019. Testing performed by: [facility], [address] [place] [address]., [id number] Blood 02/03/2024 9:52 AM CDT 02/03/2024 11:29 AM CDT Narrative MICHI CHEN (LANE) - 02/03/2024 12:18 PM CDT Bill to [facility] coRank - [employer] Patient is employed by/enrolled at:->[employer] Jasbir Qiu MD LAB MICROBIOLOGY - GENERAL OR DERABLES Final Result MICHI APRIL (LANE) 1 [facility] Department [place] [address] * Diabetic Eye Exam (11/12/2023) us Generic External Data Provider HEALTH MAINTENANC E Final Result * PSA screen (06/02/2023 10:52 AM QUOTE CLERK) PSA-Total 2.71 <=6.20 ng/mL MICHI CHEN (LANE) Comment: Interpretive Data AGE SEX REFERENCE INTERVAL [...] revised 21. Blood 06/02/2023 10:5 2 AM QUOTE CLERK 06/02/2023 11:03 AM QUOTE CLERK us Dante Ratliff MD LAB BLOOD ORDERABLES Final R esult MICHI CHEN (LANE) 1 [facility] Department [place] [address] * CT Abdomen Pelvis W Contrast (01/11/2021 [...] Electronically signed by Todd Peoples M.D. NC: HENIRQUE Report ID: [id number] Reading Location: [id number] Procedure Note Todd Peoples MD - 01/11/2021 EXAM DESCRIPTION: CT ABDOMEN PELVIS W CONTRAST REASON FOR STUDY: Right upper abdomen pain around incision site from cholecystectomy, history of large cell lymphoma with chemo, optiray [id number] 20 gauge right acDuration: over 1 month [...] Todd Peoples M.D. NC: HENRIQUE Report ID: [id number] Reading Location: [place] [address] Carlos Alberto Delarosa MD IMG CT PROCEDURE S Final Result * DIABETES FOOT EXAM (07/09/2016) Diabetic Foot Exam Unknown Historical Provider HEALTH MAINTENANCE Final Result from Last 3 Months or Most Recently Relevant to Health Maintenance Insurance MEDICARE [facility] MEDICARE [facility] MEDICARE [facility] Advance Directives For more information, please contact: [phone] * Full Code (Latest Code Status on File) Date Activated Date Inactivated Comments 04/27/2024 9:11 AM 04/27/2024 3:46 PM * Full Code Date Activated Date Inactivated Comments 04/27/2024 9:11 AM 04/27/2024 9:11 AM * Full Code Date Activated Date Inactivated Comments 02/02/2024 4:54 PM 02/03/2024 6:44 PM * Full Code Date Activated Date Inactivated Comments 11/09/2018 7:54 PM 11/11/2018 7:54 PM Care Teams Wallpaper Inspector Relationship Specialty Start Date End Date Hair Ocasio MD [address] SHRUTI England [facility] [address] [place] [address] PCP - General Family Medicine 10/16/23 Fidel Figueredo MD Referring Physician General Surgery 11/11/18 Evaristo Gomez MD [address] [facility] SHRUTI Lozada [facility] [address] [place] [address] Surgeon Orthopedic Surgery 12/09/23
[2024-08-18 12:18] VITALS: BP 143/70; PULSE 91; RESP 20; TEMP 37.3; O2SAT 90
--- NOTE | 2024-08-18 12:21 | ED_ITS ---
HPI - URI/Sore Throat General Chief Complaint: Upper Respiratory Infection Stated Complaint: Shortness of Breath/Chest Congestion/Runny Nose Time Seen by Provider: 08/18/24 12:21 Source: patient Mode of arrival: ambulatory Limitations: no limitations History of Present Illness HPI Narrative: 78-year-old male with a history of diabetes and 1 pack per day smoker presented for complaint of Fatigue, weakness, cough and chest congestion. Onset yesterday. states chest feels tight. Denies nausea, vomiting, diarrhea, fevers. not taking anything for symptoms. Related Data Home Medications ?Medication ?Instructions ?Recorded ?Confirmed ?Last Taken ?Type Xanax 07/01/22 Unknown History gabapentin 07/01/22 Unknown History metformin 07/01/22 Unknown History pioglitazone 07/01/22 Unknown History pravastatin 07/01/22 Unknown History sildenafil 100 mg tablet mg 07/01/22 Unknown History trazodone 50 mg tablet mg 07/01/22 Unknown History aspirin 81 mg tablet,delayed mg 08/18/24 Unknown History release Allergies Allergy/AdvReac Type Severity Reaction Status Date / Time No Known Allergies Allergy Verified 08/18/24 12:27 Review of Systems Review of Systems: ROS per HPI All systems reviewed & are unremarkable except as noted in HPI and below PMFSH Past Medical History Medical History Tobacco use Diabetes Hyperlipidemia Surgical History Surgical History History of cholecystectomy Family History Family History Mother Family history non-contributory Social History Social History Smoking packs per day: 0.5 Smoking cigarettes per day: 10.0 Smoking status: Current every day smoker Substance use: never Living arrangements: with family Gender identity (if verbalized by the patient): Male Sexual Orientation (if Verbalized by the Patient): Straight or Heterosexual Spiritual care concerns: No Comments At time of signature, I have reviewed and agree with nursing past medical, surgical, social and family history unless otherwise noted. Please see nursing chart for further information. There is no relevant family history pertinent to the presenting complaint Exam Narrative: GENERAL: ill-appearing, nontoxic, drowsy times easily awakens EYES: EOMI. No redness or drainage. Conjunctivae normal. ENT: Mucous membranes pink and moist. No rhinorrhea. NECK: Normal AROM. Supple. CHEST: No respiratory distress. diminished to all carter. Cough is harsh. Speaks full sentences. HEART: Regular rate and rhythm. No murmur appreciated. ABDOMEN: Soft, nontender, nondistended, normal active bowel sounds. EXTREMITIES: Normal range of motion. 1+ BLE edema. SKIN: Warm, dry, no rash. Capillary refill normal. Normal skin turgor. NEURO: Alert and oriented x3. Gait steady. Course Course Emergency Course: Patient is aware of diagnosis, understands and agrees to treatment plan. Anticipatory guidance given. Patient agrees to follow-up as directed and is aware of reasons to seek care at the emergency department. Portions of this record may have been created with voice recognition software Level of Care: Express Care Visit Vital Signs Vital signs: Vital Signs Temperature 99.1 F 08/18/24 12:18 Pulse Rate 91 08/18/24 12:18 Respiratory Rate 20 08/18/24 12:18 Blood Pressure 143/70 H 08/18/24 12:18 Pulse Oximetry 90 08/18/24 12:18 Oxygen Delivery Room Air 08/18/24 12:18 Temperature 99.1 F 08/18/24 12:18 Pulse Rate 91 08/18/24 12:18 Respiratory Rate 20 08/18/24 12:18 Blood Pressure 143/70 H 08/18/24 12:18 Pulse Oximetry 90 08/18/24 12:18 Oxygen Delivery Room Air 08/18/24 12:18 MDM - URI/Sore Throat MDM Narrative Medical decision making narrative: O2 sat 89-92%, dropped to 82% RA when putting on his sweater POS flu. EKG NSR91 CXR negative Pt is aware of the results and O2, Advised ER transfer. pt refuses. The patient is clinically sober, AA&Ox3, free from distracting injury. 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 Given the patients presentation, we communicated our concern for hypoxia,weakness in laymans terms. The patient verbalized an understanding. The patient is aware the evaluation is incomplete & many troublesome conditions have not been r/o. We have discussed the need for further ED evaluation. We have discussed the range of possible dx, potential testing & treatment options. Our discussions included the potential outcomes of leaving AMA, including worsening of their condition, becoming permanently disabled/in pain/critically ill, or . Despite these efforts, we were unable to convince the pt to go to the ER. The patient is refusing any further care and is leaving against medical advice. We have attempted to offer tx/rx/guidance for any dangerous conditions which are most likely and/or dangerous. We have a nswered all questions and have implored the patient to go to [facility] to complete the w/u. A staff member witnessed the patient consenting to AMA. Differential Diagnosis Differential diagnosis: Likely upper respiratory infection, sinusitis, viral infection and bronchitis Lab Data Labs: Lab Results 08/18/24 Range/Units 12:41 POC Influenza A Ag Positive (Negative) POC Influenza B Ag Negative (Negative) POC SARS CoV-2 Ag Negative (Negative) Imaging Data Radiologist's impression: Patient: Andry Elliott : 1945 MR#: [id number] Age: 78 Acct:[id number] Loc: [facility] ADM Date: 08/18/24Attending Dr: Ordering Physician: Yana Mohr APRN Date of Service: 08/18/24 Procedure(s): XR chest 2V Accession Number(s): [id number] cc: Amarjit, Hair Garcia MD; Yana Mohr APRN~ EXAMINATION: XR chest 2V 08/18/2024 12:37 INDICATION: Cough and shortness of PROCEDURE: 2 view chest COMPARISON: 04/21/2023 FINDINGS: The lungs are clear. The cardiomediastinal silhouette is within normal limits. There are no pleural effusions. There is no pneumothorax suspected. IMPRESSION: 1: NO ACUTE CARDIOPULMONARY DISEASE. ECG Data EKG #1: Attestation: I personally reviewed and interpreted this ECG as follows: (NSR 91 PA 166, QRS 88, QT / QTC 337/386) ECG completion date: 08/18/24 ECG completion time: 12:46 Prior ECG tracings: not available for review EKG Interpretation: normal rate and sinus rhythm Discharge Plan Discharge Clinical Impression: Viral infection, Hypoxia Patient Disposition: Left Against Medical Advice Condition: Stable Patient Language: Taiwanese Prescriptions: No Action prednisone 50 mg tablet 50 mg PO DAILY Qty: 5 0RF albuterol sulfate 90 mcg/actuation HFA aerosol inhaler 2 puff inhalation QID PRN (Reason: shortness of breath or wheezing) Qty: 8.5 0RF dextromethorphan-guaifenesin [Mucinex DM] 60-1,200 mg tablet extended release 12 hr 1 tablet PO Q12H PRN (Reason: cough) Qty: 20 0RF aspirin 81 mg tablet,delayed release (DR/EC) trazodone 50 mg tablet sildenafil 100 mg tablet Xanax gabapentin metformin pioglitazone pravastatin Lagevrio (EUA) 200 mg capsule 800 mg PO Q12H 5 Days Qty: 40 0RF Follow-up/Referrals: Amarjit,Hair Garcia MD [Primary Care Provider] -
--- NOTE | 2024-08-18 12:28 | ECG_ITS ---
Test Date: 2024-08-18 12:46:00 Measurements Intervals [place] Rate: 91 P: 76 FL: 166 QRS: 83 QRSD: 88 T: 69 QT: 337 QTc: 416 Interpretive Statements SINUS RHYTHM CANNOT R/O SEPTAL INFARCT, AGE INDETERMINATE BASELINE ARTIFACT- V4-V6 ABNORMAL ECG No previous ECG available for comparison Electronically Signed On 08-18-2024 12:51:29 ANGLE SHEARER by Osvaldo Juarez D.O.
[2024-08-18 12:43] LABS: EDCOVIDSCREEN Negative (Negative); EDINFLUASCREEN Positive (Negative); EDINFLUBSCREEN Negative (Negative)
== END 2024-08-18 13:12 | disposition left against medical advice (07) ==
LOC: EXPBETH 12:10
PROVIDERS: Emergency Provider Nurse Practitioner Family; PCP Family Medicine
DX: B34.9 Viral infection, unspecified (principal); R09.02 Hypoxemia; E11.9 Type 2 diabetes mellitus without complications; F17.210 Nicotine dependence, cigarettes, uncomplicated; Z20.822 Contact with and (suspected) exposure to COVID-19
CPT/HCPCS: 71046; 87426; 87804; 93005; 99213; G0463